=== PATIENT | female | born 1985 | race African-American/Black ===

== ENCOUNTER 2021-06-19 13:56 | Inpatient (IN) | payer OTHER ==
[2021-06-19] MEDS ORDERED: Acetaminophen/oxyCODONE 325-5 MG Tab PO PRN (16:49)
[2021-06-19] MEDS ORDERED: Pantoprazole 40 MG Tab.CR PO SCH (17:00)
[2021-06-19] MEDS ORDERED: amLODIPine 5 MG Tab PO SCH (17:00)
[2021-06-19] MEDS ORDERED: predniSONE 20 MG Tab PO SCH (17:00)
[2021-06-19] MEDS ORDERED: Ondansetron 4 MG/2 ML SDV IVPUSH PRN (17:00)
[2021-06-19] MEDS ORDERED: Furosemide 40 MG/4 ML VIAL IVPUSH ONE (17:00)
[2021-06-19] MEDS ORDERED: Hydroxychloroquine 200 MG Tab PO SCH ×2 (17:00→17:48)
[2021-06-19] MEDS ORDERED: Morphine 2 MG/ML SYRINGE IVPUSH PRN (17:30)
--- NOTE | 2021-06-19 17:45 | PCM.HP.2 ---
H&P History of Present Illness - General Date of Service: 06/19/21 Admit Problem/Dx: Admission Diagnosis/Problem Admission Diagnosis/Problem Chest pain - History of Present Illness Initial Comments - Free Text/Narative: The patient is a 35-year-old half /half -Prydeinig female, on day 1 of service, who has a significant past medical history of SLE, CKD, GERD, hypertension, anxiety, depression, and recent COVID-19 positive diagnosis, who is a direct admit from [facility] in [place], for chest pain. The chest pain started 48 hours ago, is substernal in location, sharp in nature, 7 out of 10 in intensity, and nonradiating. Along with her chest pain, the patient has had a 1 week history of mild shortness of breath, nausea, fatigue, constipation, and bilateral lower extremity edema. She was most recently hospitalized in May inpatient for hyperkalemia and worsening chronic kidney disease. While admitted there was conversation about starting dialysis but that has not yet come to fruition. Her hemoglobin during that inpatient stay was 13.6 and today is 7.6, depicting a worsening status. She has allergies to sulfa. Her family history is significant for diabetes mellitus type 2 and coronary artery disease. Social history is significant for daily marijuana use, but she denies alcohol consumption and cigarette smoking. On CBC, her white blood cells is 13.30, hemoglobin is 7.6, hematocrit is 23.7, platelet count is 190, MCV is increased at 106.8, PT is 9.4, INR is less than 0.93, D-dimer is increased at 1.47. On CMP, sodium is 136, potassium is 5.0, chloride is 103, carbon dioxide is 26, BUN is 38, creatinine is 1.9, estimated GFR is 37, glucose is 145, lipase is 187. Two troponin levels taking and decreasing were increased to 0.083 and 0.065. On ABGs, pH is 7.45, PCO2 is 33.3, PO2 is 70, HCO3 is 23, base excess is -0.2 In the ED at [facility]: Vital signs showed, temperature 98.1, heart rate of 89, blood pressure 150/89, respiratory rate of 20, O2 saturation of 94% on room air an EKG was done which showed Q waves, normal sinus rhythm, anteroseptal infarct with acute over 35 ms The patient was given aspirin 324 mg per oral route once in a normal saline bolus [address] angiogram, small bilateral pleural effusions were seen, no pulmonary embolism, pulmonary arteries were well opacified, no pericardial thickening, there is moderate patchy linear densities at both lung bases, bibasilar pneumonia cannot be excluded, with soft tissue edema in both breasts worse on the right, there was compressive atelectasis, peripancreatic fluid throughout, and intraperitoneal fluid present as well. - Related Data Allergies/Adverse Reactions: Allergies Allergy/AdvReac Type Severity Reaction Status Date / Time Sulfa (Sulfonamide AdvReac Nausea Verified 06/19/21 16:07 Antibiotics) Home Medications: Home Meds predniSONE [Prednisone] 40 mg PO DAILY 12/21/20 [History] oxyCODONE HCl/Acetaminophen [Percocet 5-325 mg Tablet] 1 - 2 each PO Q4H PRN #16 tablet 12/23/20 [Rx] Bumetanide [Bumex] 1 mg PO DAILY 06/18/21 [History] Famotidine 20 mg PO BEDTIME 06/18/21 [History] Hydroxychloroquine [Plaquenil] 400 mg PO DAILY 06/18/21 [History] Labetalol [Normodyne] 300 mg PO TID 06/18/21 [History] amLODIPine [Norvasc] 10 mg PO DAILY 06/18/21 [History] azaTHIOprine [Azathioprine] 150 mg PO DAILY 06/18/21 [History] Calcium/Magnesium/Vitamin D3 [Gianni-Mag Complex 300-150 mg Tab] 1 tab PO DAILY 06/19/21 [History] Cholecalciferol (Vitd3)/Vit K2 [D3 + K2 Dots 1,000 Unit] 1 tab PO DAILY 06/19/21 [History] Ondansetron [Zofran ODT] 1 tab PO Q4HR PRN 06/19/21 [History] Pantoprazole [ProTONIX] 1 tab PO DAILY 06/19/21 [History] Past Medical History Cardiovascular History: Reports: Hypertension 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: Musculoskeletal History: Reports: SLE, Other (See Below) Other Musculoskeletal History: lupus Psychiatric History: Reports: Anxiety, Depression, Emotional Problems, Mood Swings Immunologic History: Reports: SLE - Past Surgical History HEENT Surgical History: Reports: Oral Surgery Respiratory Surgical History: Reports: Thoracentesis Social & Family History - Family History Other Cardiac Family History: heart disease Endocrine/Metabolic: Reports: Diabetes, type II - Tobacco Use Tobacco Use Status *Q: Current Every Day Tobacco User Years of Tobacco use: 20 Packs/Tins Daily: 1 - Caffeine Use Caffeine Use: Reports: Tea - Recreational Drug Use Recreational Drug Use: Yes Recreational Drug Type: Reports: Marijuana/Hashish Recreational Drug Use Frequency: Socially - Living Situation & Occupation Living situation: Reports: Single, with Significant Other (Fianc) 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 Denies: Eye Pain, Sore Throat, Visual Changes Pulmonary: Reports: Shortness of Breath. Denies: Wheezing, Cough Cardiovascular: Reports: Chest Pain, Edema. Denies: Palpitations, Dyspnea on Exertion, Orthopnea Gastrointestinal: Reports: Constipation, Nausea. Denies: Abdominal Pain, Diarrhea, Vomiting Genitourinary: Denies: Dysuria, Frequency, Burning, Pain Musculoskeletal: Reports: Joint Pain. Denies: Shoulder Pain, Back Pain Exam - Exam Exam: See Below - Vital Signs Vital Signs: Last Vital Signs Temp 98.1 F 06/19/21 15:35 Pulse 81 06/19/21 15:35 Resp 18 06/19/21 15:35 BP 142/95 H 06/19/21 15:35 Pulse Ox 99 06/19/21 16:00 Weight: 153 lb - Exam General: Alert, Oriented, Cooperative HEENT: EOMI, Normal Nasal Septum, Posterior Pharynx Clear, Other (Dry mucous membranes) Neck: Trachea Midline. No: Lymphadenopathy Lungs: Clear to Auscultation, Normal Respiratory Effort Cardiovascular: Regular Rate, Regular Rhythm, Normal S1, Normal S2 GI/Abdominal Exam: Normal Bowel Sounds, Distended Extremities: Pedal Edema Neurological: Normal Speech Neuro Extensive - Mental Status: Alert, Oriented x3, Normal Mood/Affect, Normal Cognition Psychiatric: Normal Mood - Patient Data Lab Results Last 24 hrs: Laboratory Results - last 24 hr 06/19/21 Range/Units 17:11 APTT 21.0 (18.6-31.3) SEC Sepsis Event Note - Focused Exam Vital Signs: Vital Signs Temp Pulse Resp BP Pulse Ox Pulse Ox 06/19/21 16:00 99 06/19/21 15:35 98.1 F 81 18 142/95 H 99 - Problem List (1) SLE (systemic lupus erythematosus) SNOMED Code(s): 08425197 ICD Code: M32.9 - SYSTEMIC LUPUS ERYTHEMATOSUS, UNSPECIFIED Status: Acute Current Visit: Yes (2) Constipation SNOMED Code(s): 56455582 ICD Code: K59.00 - CONSTIPATION, UNSPECIFIED Status: Acute Current Visit: Yes (3) HTN (hypertension) SNOMED Code(s): 50008636 ICD Code: I10 - ESSENTIAL (PRIMARY) HYPERTENSION Status: Acute Current Visit: Yes (4) Chest pain SNOMED Code(s): 23259834 ICD Code: R07.9 - CHEST PAIN, UNSPECIFIED Status: Acute Current Visit: Ye s (5) Edema SNOMED Code(s): 039447929, 142469211 ICD Code: R60.9 - EDEMA, UNSPECIFIED Status: Acute Current Visit: Yes (6) Shortness of breath SNOMED Code(s): 777473924 ICD Code: R06.02 - SHORTNESS OF BREATH Status: Acute Current Visit: Yes (7) Pleural effusion SNOMED Code(s): 38777924 ICD Code: J90 - PLEURAL EFFUSION, NOT ELSEWHERE CLASSIFIED Status: Acute Current Visit: Yes (8) Anemia SNOMED Code(s): 688041977 ICD Code: D64.9 - ANEMIA, UNSPECIFIED Status: Acute Current Visit: No Qualifiers: Anemia type: unspecified type Qualified Code(s): D64.9 - Anemia, unspecified (9) COVID-19 SNOMED Code(s): 940597706 ICD Code: U07.1 - COVID-19 Status: Acute Current Visit: No (10) Elevated troponin SNOMED Code(s): 086937151, 279853189, 641071236 ICD Code: R77.8 - OTHER SPECIFIED ABNORMALITIES OF PLASMA PROTEINS Status: Acute Current Visit: No (11) ADAMA (acute kidney injury) SNOMED Code(s): 12214312, 67662666 ICD Code: N17.9 - ACUTE KIDNEY FAILURE, UNSPECIFIED Status: Acute Current Visit: Yes Problem List Initiated/Reviewed/Updated: Yes Orders Last 24hrs: Active Orders 24 hr Category Date Time Status Admission Status [Patient Status] [ADT] Routine ADT 06/19/21 17:33 Ordered Oxygen Therapy [RC] PRN Care 06/19/21 15:35 Active Telemetry Monitoring [Cardiac Monitoring] [RC] . Care 06/19/21 17:29 Ordered DIRECTED Up ad Inga [RC] ASDIRECTED Care 06/19/21 15:35 Active VTE/DVT Education [RC] PER UNIT ROUTINE Care 06/19/21 15:35 Active Vital Signs [RC] Q4H Care 06/19/21 15:35 Active Regular Diet [DIET] Diet 06/19/21 Dinner Active CBC WITH AUTO DIFF [HEME] AM Lab 06/20/21 05:11 Ordered CBC WITH AUTO DIFF [HEME] AM Lab 06/21/21 05:11 Ordered CBC WITH AUTO DIFF [HEME] AM Lab 06/22/21 05:11 Ordered CBC WITH AUTO DIFF [HEME] AM Lab 06/23/21 05:11 Ordered CMP [COMPREHENSIVE METABOLIC PN,CMP] [CHEM] AM Lab 06/20/21 05:11 Ordered CMP [COMPREHENSIVE METABOLIC PN,CMP] [CHEM] AM Lab 06/21/21 05:11 Ordered CMP [COMPREHENSIVE METABOLIC PN,CMP] [CHEM] AM Lab 06/22/21 05:11 Ordered CMP [COMPREHENSIVE METABOLIC PN,CMP] [CHEM] AM Lab 06/23/21 05:11 Ordered FOLIC ACID [CHEM] Routine Lab 06/19/21 17:11 Received PTT,PARTIAL THROMBOPLSTIN TIME [COAG] Q6H Lab 06/19/21 23:00 Ordered PTT,PARTIAL THROMBOPLSTIN TIME [COAG] Q6H Lab 06/20/21 05:00 Ordered PTT,PARTIAL THROMBOPLSTIN TIME [COAG] Q6H Lab 06/20/21 11:00 Ordered PTT,PARTIAL THROMBOPLSTIN TIME [COAG] Q6H Lab 06/20/21 17:00 Ordered PTT,PARTIAL THROMBOPLSTIN TIME [COAG] Q6H Lab 06/20/21 23:00 Ordered PTT,PARTIAL THROMBOPLSTIN TIME [COAG] Q6H Lab 06/21/21 05:00 Ordered TROPONIN I [CHEM] Routine Lab 06/19/21 17:11 Received VITAMIN B12 [CHEM] Routine Lab 06/19/21 17:11 Received Heparin Sodium Med 06/19/21 17:00 Ordered 5,000 units SUBCUT Q8H Hydroxychloroquine [Plaquenil] Med 06/19/21 17:00 Ordered 400 mg PO DAILY Morphine Med 06/19/21 17:31 Ordered 1 mg IVPUSH Q4H PRN Ondansetron [Zofran] Med 06/19/21 16:53 Ordered 4 mg IVPUSH Q4H PRN Pantoprazole [ProTONIX] Med 06/19/21 17:00 Ordered 40 mg PO DAILY amLODIPine [Norvasc] Med 06/19/21 17:00 Ordered 10 mg PO DAILY azaTHIOprine [Imuran] Med 06/19/21 17:00 Ordered 150 mg PO DAILY predniSONE Med 06/19/21 17:00 Active 40 mg PO DAILY Medication Orders Amlodipine Besylate (Amlodipine 5 Mg Tab) 10 mg PO DAILY DEJON Azathioprine (Azathioprine 50 Mg Tab) 150 mg PO DAILY [facility] Heparin Sodium (Porcine) (Heparin Sodium 5,000 Units/Ml Vial) 5,000 units SUBCUT Q8H DEJON Hydroxychloroquine Sulfate (Hydroxychloroquine 200 Mg Tab) 400 mg PO DAILY [facility] Morphine Sulfate (Morphine 2 Mg/Ml Syringe) 1 mg IVPUSH Q4H PRN PRN Reason: Chest Pain Ondansetron HCl (Ondansetron 4 Mg/2 Ml Sdv) 4 mg IVPUSH Q4H PRN PRN Reason: Nausea Pantoprazole Sodium (Pantoprazole 40 Mg Tab.Cr) 40 mg PO DAILY DEJON Prednisone (Prednisone 20 Mg Tab) 40 mg PO DAILY [facility] Assessment/Plan Comment:: Admit the patient to the medical floor for observation, vitals per unit routine, activity up ad inga., pantoprazole 40 mg p.o. once a day for GI prophylaxis, heparin 5000 three times a day for DVT prophylaxis, regular vegetarian diet 1. Chest pain -The patient had 2 troponin levels drawn while she was in [facility], both levels were elevated at 0.083 and 0.065. We have ordered another troponin level to see the trend. -The patient's chest pain is currently 1/10 in intensity after being treated with aspirin 324 mg once in [facility], we have morphine 1 mg per IV route on board if she experiences any more chest pain -The patient has been placed on telemetry to monitor her cardiac electrical function 2. SLE -We will continue the patient on her home dosage of his azathioprine 150 mg per oral route once a day -We will continue the patient on hydroxychloroquine 400 mg per oral route once a day -We will continue the patient on prednisone 40 mg per oral route once a day 3. Lower extremity edema/Pleural effusion -We will give the patient's Lasix 40 mg per IV route once and see what effect that has on the patient's fluid buildup 4. Shortness of breath -For the patient's intermittent shortness of breath, we have duo nebs on board 5. Constipation -MiraLAX 17 g at bedtime per oral route in a powder form is on board 6. Nausea -Zofran 4 mg per intravenous route every 4 hours as needed is on board 7. Hypertension -Continue the patient's amlodipine 10 mg per oral route once a day 8. Anemia, increased MCV -We have ordered a folate and B12 level to decipher macrocytosis cause, also ordered Daily CBC 9. ADAMA -Patient's elevated creatinine is most likely due to history of SLE, will monitor with daily CMP 10. COVID-19 -Patient is currently saturating over 90% on room air, does not require treatment at this time
[2021-06-19] MEDS ORDERED: Albuterol/Ipratropium 3.0-0.5 MG/3 ML Neb Soln NEB PRN (18:00)
[2021-06-19] MEDS: predniSONE 20 MG Tab PO SCH (18:25)
[2021-06-19] MEDS: Heparin Sodium 5,000 Units/ML Vial SUBCUT SCH (18:25)
[2021-06-19] MEDS: Pantoprazole 40 MG Tab.CR PO SCH (18:25)
[2021-06-19] MEDS ORDERED: Polyethylene Glycol 3350 Powder 17 GM Packet PO PRN (21:00)
[2021-06-20] MEDS: Heparin Sodium 5,000 Units/ML Vial SUBCUT SCH ×3 (01:20→17:02)
[2021-06-20 06:42] LABS: CARBON DIOXIDE,CO2 26.1 mmol/L (21.0-32.0); POTASSIUM,K 5.1 mmol/L (3.5-5.1)
[2021-06-20] MEDS: predniSONE 20 MG Tab PO SCH (08:32)
[2021-06-20] MEDS: Pantoprazole 40 MG Tab.CR PO SCH (08:32)
--- NOTE | 2021-06-20 10:37 | PCM.PN ---
- General Info Date of Service: 06/20/21 Subjective Update: Patient states feeling better after loss of free fluid, as patient was retaining fluid prior to admission. Patient denies chest pain, shortness of breath, fever , nausea, vomiting, abdominal pain. States constipation. - Review of Systems General: Reports: Fatigue. Denies: Fever, Chills Pulmonary: Denies: Shortness of Breath, Cough Cardiovascular: Reports: Chest Pain. Denies: Dyspnea on Exertion, Edema Gastrointestinal: Denies: Abdominal Pain, Diarrhea, Nausea, Vomiting Neurological: Denies: Confusion, Dizziness, Headache - Patient Data Vitals - Most Recent: Last Vital Signs Temp 98.0 F 06/20/21 08:00 Pulse 93 06/20/21 08:00 Resp 16 06/20/21 08:00 BP 154/115 H 06/20/21 08:00 Pulse Ox 100 06/20/21 08:00 Weight - Most Recent: 153 lb I&O - Last 24 Hours: Intake & Output 06/19/21 06/20/21 06/20/21 22:59 06:59 14:59 Intake Total 200 Output Total 1500 Balance -1300 Lab Results Last 24 Hours: Laboratory Results - last 24 hr 06/19/21 06/19/21 06/19/21 Range/Units 17:11 17:11 17:11 WBC (4.0-11.0) K/uL RBC (4.30-5.90) M/uL Hgb (12.0-16.0) g/dL Hct (36.0-46.0) % MCV (80.0-98.0) fL MCH (27.0-32.0) pg MCHC (31.0-37.0) g/dL RDW Std Deviation (28.0-62.0) fl RDW Coeff of Go (11.0-15.0) % Plt Count (150-400) K/uL MPV (7.40-12.00) fL Neut % (Auto) (48.0-80.0) % Lymph % (Auto) (16.0-40.0) % [place] % (Auto) (0.0-15.0) % Eos % (Auto) (0.0-7.0) % Baso % (Auto) (0.0-1.5) % Neut # (Auto) (1.4-5.7) K/uL Lymph # (Auto) (0.6-2.4) K/uL [place] # (Auto) (0.0-0.8) K/uL Eos # (Auto) (0.0-0.7) K/uL Baso # (Auto) (0.0-0.1) K/uL APTT 21.0 (18.6-31.3) SEC Sodium (136-145) mmol/L Potassium (3.5-5.1) mmol/L Chloride (98-107) mmol/L Carbon Dioxide (21.0-32.0) mmol/L BUN (7.0-18.0) mg/dL Creatinine (0.6-1.0) mg/dL Est Cr Clr Drug Dosing mL/min Estimated GFR (MDRD) ml/min Glucose (74-106) mg/dL Calcium (8.5-10.1) mg/dL Total Bilirubin (0.2-1.0) mg/dL AST (15-37) IU/L ALT (14-63) IU/L Alkaline Phosphatase (46-116) U/L Troponin I 0.068 H* (0.000-0.056) ng/mL B-Natriuretic Peptide (<100) PG/ML Total Protein (6.4-8.2) g/dL Albumin (3.4-5.0) g/dL Globulin (2.6-4.0) g/dL Albumin/Globulin Ratio (0.9-1.6) Vitamin B12 517 (193-986) pg/mL Folate 10.90 (8.60-58.90) ng/mL 06/19/21 06/20/21 06/20/21 Range/Units 21:15 01:24 05:47 WBC (4.0-11.0) K/uL RBC (4.30-5.90) M/uL Hgb (12.0-16.0) g/dL Hct (36.0-46.0) % MCV (80.0-98.0) fL MCH (27.0-32.0) pg MCHC (31.0-37.0) g/dL RDW Std Deviation (28.0-62.0) fl RDW Coeff of Go (11.0-15.0) % Plt Count (150-400) K/uL MPV (7.40-12.00) fL Neut % (Auto) (48.0-80.0) % Lymph % (Auto) (16.0-40.0) % [place] % (Auto) (0.0-15.0) % Eos % (Auto) (0.0-7.0) % Baso % (Auto) (0.0-1.5) % Neut # (Auto) (1.4-5.7) K/uL Lymph # (Auto) (0.6-2.4) K/uL [place] # (Auto) (0.0-0.8) K/uL Eos # (Auto) (0.0-0.7) K/uL Baso # (Auto) (0.0-0.1) K/uL APTT 21.8 (18.6-31.3) SEC Sodium (136-145) mmol/L Potassium (3.5-5.1) mmol/L Chloride (98-107) mmol/L Carbon Dioxide (21.0-32.0) mmol/L BUN (7.0-18.0) mg/dL Creatinine (0.6-1.0) mg/dL Est Cr Clr Drug Dosing mL/min Estimated GFR (MDRD) ml/min Glucose (74-106) mg/dL Calcium (8.5-10.1) mg/dL Total Bilirubin (0.2-1.0) mg/dL AST (15-37) IU/L ALT (14-63) IU/L Alkaline Phosphatase (46-116) U/L Troponin I 0.053 0.050 (0.000-0.056) ng/mL B-Natriuretic Peptide (<100) PG/ML Total Protein (6.4-8.2) g/dL Albumin (3.4-5.0) g/dL Globulin (2.6-4.0) g/dL Albumin/Globulin Ratio (0.9-1.6) Vitamin B12 (193-986) pg/mL Folate (8.60-58.90) ng/mL 06/20/21 06/20/21 06/20/21 Range/Units 05:47 05:47 05:47 WBC 20.91 H (4.0-11.0) K/uL RBC 2.43 L (4.30-5.90) M/uL Hgb 8.5 L (12.0-16.0) g/dL Hct 25.9 L (36.0-46.0) % MCV 106.6 H (80.0-98.0) fL MCH 35.0 H (27.0-32.0) pg MCHC 32.8 (31.0-37.0) g/dL RDW Std Deviation 53.3 (28.0-62.0) fl RDW Coeff of Go 14 (11.0-15.0) % Plt Count 241 (150-400) K/uL MPV 11.80 (7.40-12.00) fL Neut % (Auto) 94.8 H (48.0-80.0) % Lymph % (Auto) 2.2 L (16.0-40.0) % [place] % (Auto) 3.0 (0.0-15.0) % Eos % (Auto) 0.0 (0.0-7.0) % Baso % (Auto) 0.0 (0.0-1.5) % Neut # (Auto) 19.8 H (1.4-5.7) K/uL Lymph # (Auto) 0.5 L (0.6-2.4) K/uL [place] # (Auto) 0.6 (0.0-0.8) K/uL Eos # (Auto) 0.0 (0.0-0.7) K/uL Baso # (Auto) 0.0 (0.0-0.1) K/uL APTT (18.6-31.3) SEC Sodium 141 (136-145) mmol/L Potassium 5.1 (3.5-5.1) mmol/L Chloride 107 (98-107) mmol/L Carbon Dioxide 26.1 (21.0-32.0) mmol/L BUN 39 H (7.0-18.0) mg/dL Creatinine 1.7 H (0.6-1.0) mg/dL Est Cr Clr Drug Dosing 43.65 mL/min Estimated GFR (MDRD) 41.7 ml/min Glucose 129 H (74-106) mg/dL Calcium 7.4 L (8.5-10.1) mg/dL Total Bilirubin 0.2 (0.2-1.0) mg/dL AST 13 L (15-37) IU/L ALT 20 (14-63) IU/L Alkaline Phosphatase 68 (46-116) U/L Troponin I (0.000-0.056) ng/mL B-Natriuretic Peptide 22 (<100) PG/ML Total Protein 4.1 L (6.4-8.2) g/dL Albumin 1.3 L (3.4-5.0) g/dL Globulin 2.8 (2.6-4.0) g/dL Albumin/Globulin Ratio 0.5 L (0.9-1.6) Vitamin B12 (193-986) pg/mL Folate (8.60-58.90) ng/mL Med Orders - Current: Current Medications Albuterol/Ipratropium (Albuterol/Ipratropium 3.0-0.5 Mg/3 Ml Neb Soln) 3 ml NEB Q8HRRT PRN PRN Reason: Shortness of Breath Heparin Sodium (Porcine) (Heparin Sodium 5,000 Units/Ml Vial) 5,000 units SUBCUT Q8H [facility] Last Admin: 06/20/21 08:29 Dose: 5,000 units Documented by: Morphine Sulfate (Morphine 2 Mg/Ml Syringe) 1 mg IVPUSH Q4H PRN PRN Reason: Chest Pain Ondansetron HCl (Ondansetron 4 Mg/2 Ml Sdv) 4 mg IVPUSH Q4H PRN PRN Reason: Nausea Amlodipine 10 Mg Tab 1 each PO DAILY [facility] Last Admin: 06/20/21 08:30 Dose: 1 each Documented by: Pantoprazole 40 Mg (Tab.Cr) 1 each PO DAILY [facility] Last Admin: 06/20/21 08:32 Dose: 1 each Documented by: Azathioprine 50 Mg (Tab) 2.5 each PO DAILY [facility] Last Admin: 06/20/21 08:31 Dose: 2.5 each Documented by: Prednisone 20 Mg Tab 2 each PO DAILY [facility] Last Admin: 06/20/21 08:32 Dose: 2 each Documented by: Hydroxychloroquine (200 Mg Tab) 1 each PO BID [facility] Polyethylene Glycol (Polyethylene Glycol 3350 Powder 17 Gm Packet) 17 gm PO BEDTIME PRN PRN Reason: Constipation Discontinued Medications Amlodipine Besylate (Amlodipine 5 Mg Tab) 10 mg PO DAILY [facility] Last Admin: 06/19/21 18:45 Dose: Not Given Documented by: Azathioprine (Azathioprine 50 Mg Tab) 150 mg PO DAILY [facility] Last Admin: 06/19/21 18:44 Dose: Not Given Documented by: Furosemide (Furosemide 40 Mg/4 Ml Vial) 40 mg IVPUSH NOW ONE Stop: 06/19/21 17:01 Last Admin: 06/19/21 18:26 Dose: 40 mg Documented by: Hydroxychloroquine Sulfate (Hydroxychloroquine 200 Mg Tab) 400 mg PO DAILY [facility] Last Admin: 06/19/21 18:45 Dose: Not Given Documented by: Oxycodone/Acetaminophen (Acetaminophen/Oxycodone 325-5 Mg Tab) tab PO Q4H PRN PRN Reason: Pain relief Pantoprazole Sodium (Pantoprazole 40 Mg Tab.Cr) 40 mg PO DAILY [facility] Last Admin: 06/19/21 18:46 Dose: Not Given Documented by: Hydroxychloroquine (200 Mg Tab) 2 each PO DAILY [facility] Last Admin: 06/20/21 08:31 Dose: 2 each Documented by: Prednisone (Prednisone 20 Mg Tab) 40 mg PO DAILY [facility] Last Admin: 06/19/21 18:46 Dose: Not Given Documented by: - Exam General: Alert, Oriented Lungs: Clear to Auscultation, Normal Respiratory Effort, Wheezing Cardiovascular: Regular Rhythm GI/Abdominal Exam: Soft, Non-Tender, Distended Psy/Mental Status: Alert - Patient Data Lab Results Last 24 hrs: Laboratory Results - last 24 hr 06/19/21 06/19/21 06/19/21 Range/Units 17:11 17:11 17:11 WBC (4.0-11.0) K/uL RBC (4.30-5.90) M/uL Hgb (12.0-16.0) g/dL Hct (36.0-46.0) % MCV (80.0-98.0) fL MCH (27.0-32.0) pg MCHC (31.0-37.0) g/dL RDW Std Deviation (28.0-62.0) fl RDW Coeff of Go (11.0-15.0) % Plt Count (150-400) K/uL MPV (7.40-12.00) fL Neut % (Auto) (48.0-80.0) % Lymph % (Auto) (16.0-40.0) % [place] % (Auto) (0.0-15.0) % Eos % (Auto) (0.0-7.0) % Baso % (Auto) (0.0-1.5) % Neut # (Auto) (1.4-5.7) K/uL Lymph # (Auto) (0.6-2.4) K/uL [place] # (Auto) (0.0-0.8) K/uL Eos # (Auto) (0.0-0.7) K/uL Baso # (Auto) (0.0-0.1) K/uL APTT 21.0 (18.6-31.3) SEC Sodium (136-145) mmol/L Potassium (3.5-5.1) mmol/L Chloride (98-107) mmol/L Carbon Dioxide (21.0-32.0) mmol/L BUN (7.0-18.0) mg/dL Creatinine (0.6-1.0) mg/dL Est Cr Clr Drug Dosing mL/min Estimated GFR (MDRD) ml/min Glucose (74-106) mg/dL Calcium (8.5-10.1) mg/dL Total Bilirubin (0.2-1.0) mg/dL AST (15-37) IU/L ALT (14-63) IU/L Alkaline Phosphatase (46-116) U/L Troponin I 0.068 H* (0.000-0.056) ng/mL B-Natriuretic Peptide (<100) PG/ML Total Protein (6.4-8.2) g/dL Albumin (3.4-5.0) g/dL Globulin (2.6-4.0) g/dL Albumin/Globulin Ratio (0.9-1.6) Vitamin B12 517 (193-986) pg/mL Folate 10.90 (8.60-58.90) ng/mL 06/19/21 06/20/21 06/20/21 Range/Units 21:15 01:24 05:47 WBC (4.0-11.0) K/uL RBC (4.30-5.90) M/uL Hgb (12.0-16.0) g/dL Hct (36.0-46.0) % MCV (80.0-98.0) fL MCH (27.0-32.0) pg MCHC (31.0-37.0) g/dL RDW Std Deviation (28.0-62.0) fl RDW Coeff of Go (11.0-15.0) % Plt Count (150-400) K/uL MPV (7.40-12.00) fL Neut % (Auto) (48.0-80.0) % Lymph % (Auto) (16.0-40.0) % [place] % (Auto) (0.0-15.0) % Eos % (Auto) (0.0-7.0) % Baso % (Auto) (0.0-1.5) % Neut # (Auto) (1.4-5.7) K/uL Lymph # (Auto) (0.6-2.4) K/uL [place] # (Auto) (0.0-0.8) K/uL Eos # (Auto) (0.0-0.7) K/uL Baso # (Auto) (0.0-0.1) K/uL APTT 21.8 (18.6-31.3) SEC Sodium (136-145) mmol/L Potassium (3.5-5.1) mmol/L Chloride (98-107) mmol/L Carbon Dioxide (21.0-32.0) mmol/L BUN (7.0-18.0) mg/dL Creatinine (0.6-1.0) mg/dL Est Cr Clr Drug Dosing mL/min Estimated GFR (MDRD) ml/min Glucose (74-106) mg/dL Calcium (8.5-10.1) mg/dL Total Bilirubin (0.2-1.0) mg/dL AST (15-37) IU/L ALT (14-63) IU/L Alkaline Phosphatase (46-116) U/L Troponin I 0.053 0.050 (0.000-0.056) ng/mL B-Natriuretic Peptide (<100) PG/ML Total Protein (6.4-8.2) g/dL Albumin (3.4-5.0) g/dL Globulin (2.6-4.0) g/dL Albumin/Globulin Ratio (0.9-1.6) Vitamin B12 (193-986) pg/mL Folate (8.60-58.90) ng/mL 06/20/21 06/20/21 06/20/21 Range/Units 05:47 05:47 05:47 WBC 20.91 H (4.0-11.0) K/uL RBC 2.43 L (4.30-5.90) M/uL Hgb 8.5 L (12.0-16.0) g/dL Hct 25.9 L (36.0-46.0) % MCV 106.6 H (80.0-98.0) fL MCH 35.0 H (27.0-32.0) pg MCHC 32.8 (31.0-37.0) g/dL RDW Std Deviation 53.3 (28.0-62.0) fl RDW Coeff of Go 14 (11.0-15.0) % Plt Count 241 (150-400) K/uL MPV 11.80 (7.40-12.00) fL Neut % (Auto) 94.8 H (48.0-80.0) % Lymph % (Auto) 2.2 L (16.0-40.0) % [place] % (Auto) 3.0 (0.0-15.0) % Eos % (Auto) 0.0 (0.0-7.0) % Baso % (Auto) 0.0 (0.0-1.5) % Neut # (Auto) 19.8 H (1.4-5.7) K/uL Lymph # (Auto) 0.5 L (0.6-2.4) K/uL [place] # (Auto) 0.6 (0.0-0.8) K/uL Eos # (Auto) 0.0 (0.0-0.7) K/uL Baso # (Auto) 0.0 (0.0-0.1) K/uL APTT (18.6-31.3) SEC Sodium 141 (136-145) mmol/L Potassium 5.1 (3.5-5.1) mmol/L Chloride 107 (98-107) mmol/L Carbon Dioxide 26.1 (21.0-32.0) mmol/L BUN 39 H (7.0-18.0) mg/dL Creatinine 1.7 H (0.6-1.0) mg/dL Est Cr Clr Drug Dosing 43.65 mL/min Estimated GFR (MDRD) 41.7 ml/min Glucose 129 H (74-106) mg/dL Calcium 7.4 L (8.5-10.1) mg/dL Total Bilirubin 0.2 (0.2-1.0) mg/dL AST 13 L (15-37) IU/L ALT 20 (14-63) IU/L Alkaline Phosphatase 68 (46-116) U/L Troponin I (0.000-0.056) ng/mL B-Natriuretic Peptide 22 (<100) PG/ML Total Protein 4.1 L (6.4-8.2) g/dL Albumin 1.3 L (3.4-5.0) g/dL Globulin 2.8 (2.6-4.0) g/dL Albumin/Globulin Ratio 0.5 L (0.9-1.6) Vitamin B12 (193-986) pg/mL Folate (8.60-58.90) ng/mL Result Diagrams: 06/20/21 05:47 06/20/21 05:47 Sepsis Event Note - Evaluation Sepsis Screening Result: No Definite Risk - Focused Exam Vital Signs: Vital Signs Temp Pulse Resp BP BP Pulse Ox 06/20/21 08:00 98.0 F 93 16 154/115 H 100 06/20/21 04:00 98.9 F 97 17 138/104 H 100 06/20/21 00:00 98.1 F 98 17 142/98 H 100 - Problem List & Annotations (1) ADAMA (acute kidney injury) SNOMED Code(s): 50844233, 88747325 Code(s): N17.9 - ACUTE KIDNEY FAILURE, UNSPECIFIED Status: Acute Current Visit: Yes (2) Chest pain SNOMED Code(s): 32276700 Code(s): R07.9 - CHEST PAIN, UNSPECIFIED Status: Acute Current Visit: Yes (3) Constipation SNOMED Code(s): 44504662 Code(s): K59.00 - CONSTIPATION, UNSPECIFIED Status: Acute Current Visit: Yes (4) HTN (hypertension) SNOMED Code(s): 07403677 Code(s): I10 - ESSENTIAL (PRIMARY) HYPERTENSION Status: Acute Current Visit: Yes (5) SLE (systemic lupus erythematosus) SNOMED Code(s): 35121600 Code(s): M32.9 - SYSTEMIC LUPUS ERYTHEMATOSUS, UNSPECIFIED Status: Acute Current Visit: Yes (6) Lupus SNOMED Code(s): 229297626 Code(s): M32.9 - SYSTEMIC LUPUS ERYTHEMATOSUS, UNSPECIFIED Status: Acute Current Visit: No (7) Renal insufficiency SNOMED Code(s): 207621759, 247346997 Code(s): N28.9 - DISORDER OF KIDNEY AND URETER, UNSPECIFIED Status: Acute Current Visit: No - Problem List Review Problem List Initiated/Reviewed/Updated: Yes - My Orders Last 24 Hours: My Active Orders 06/20/21 10:19 Intake and Output Strict [RC] ASDIRECTED - Plan Plan:: Chest pain- Troponins currently negative, telemetry SLE- Spoke with Dr. Chilel, nephrology at [facility]. Per recommendations, hold azathioprine for 2 weeks, continue prednisone 40 mg daily, continue hydroxychloroquine, will discuss Cytoxan at next appointment. Patient to be followed up in [address] Chilel. Clinic contact number [phone], address [address] [facility], 2nd floor. Edema1 mg Bumex twice daily, strict I's and O's, adjust medication as needed ADAMA-likely secondary to SLE, creatinine improved from yesterday, 1.7. COVID-19 Patient has positive COVID-19 test but is not hypoxic. Patient at 99% O2 saturation on RA. Will defer remdesivir, dexamethasone therapy. Spoke with , crossing tender at [facility]. Rheumatology recommends that patient may receive monoclonal antibody therapy. Recommended ordering labs to include C3, C4, dsDNA, ESR, CRP to help identify severity of SLE flare versus viral infection. Patient states she will discuss antibody treatment with family members prior to proceeding. MiraLAX, zofran,
[2021-06-20] MEDS ORDERED: Bumetanide 1 MG Tab PO SCH (11:00)
[2021-06-20] MEDS ORDERED: Bumetanide 1 MG/4 ML MDV IVPUSH SCH (11:45)
[2021-06-20] MEDS: Bumetanide 1 MG/4 ML MDV IVPUSH SCH (17:02)
[2021-06-21] MEDS: Heparin Sodium 5,000 Units/ML Vial SUBCUT SCH ×3 (00:10→17:33)
[2021-06-21] MEDS: Bumetanide 1 MG/4 ML MDV IVPUSH SCH ×2 (05:58→17:33)
[2021-06-21 07:21] LABS: CARBON DIOXIDE,CO2 25.8 mmol/L (21.0-32.0); POTASSIUM,K 5.2 mmol/L (3.5-5.1)
[2021-06-21] MEDS: predniSONE 20 MG Tab PO SCH (08:32)
[2021-06-21] MEDS: Hydroxychloroquine 200 MG Tab PO SCH ×2 (08:32→21:44)
[2021-06-21] MEDS: Pantoprazole 40 MG Tab.CR PO SCH (08:32)
[2021-06-21] MEDS ORDERED: Famotidine 20 MG/2 ML SDV IVPUSH PRN (10:27)
[2021-06-21] MEDS ORDERED: diphenhydrAMINE 50 MG/ML SDV IVPUSH PRN (10:27)
[2021-06-21] MEDS ORDERED: methylPREDNISolone Sodium Succinate 125 MG/2 ML SDV IVPUSH PRN (10:27)
[2021-06-21] MEDS ORDERED: EPINEPHrine 1 MG/1 ML Amp IM PRN (10:27)
[2021-06-21] MEDS ORDERED: Sodium Chloride 0.9% 10 ML Syringe FLUSH SCH (10:30)
--- NOTE | 2021-06-21 19:42 | PCM.PN ---
- General Info Date of Service: 06/21/21 Subjective Update: Patient states that she feels better after receiving IV Bumex, states less abdominal distention, less lower extremity edema. Patient states mild fatigue which she attributes to COVID-19 infection. - Review of Systems General: Reports: Fatigue. Denies: Fever, Chills Pulmonary: Denies: Shortness of Breath, Cough Cardiovascular: Reports: Edema. Denies: Chest Pain, Dyspnea on Exertion Gastrointestinal: Denies: Abdominal Pain, Decreased Appetite, Diarrhea, Nausea Neurological: Denies: Confusion, Dizziness, Headache - Patient Data Vitals - Most Recent: Last Vital Signs Temp 96.9 F 06/21/21 17:00 Pulse 99 06/21/21 17:00 Resp 18 06/21/21 17:00 BP 156/100 H 06/21/21 17:00 Pulse Ox 97 06/21/21 17:00 Weight - Most Recent: 149 lb 8.28 oz I&O - Last 24 Hours: Intake & Output 06/21/21 06/21/21 06/21/21 06:59 14:59 22:59 Intake Total 400 800 Output Total 650 Balance -250 800 Lab Results Last 24 Hours: Laboratory Results - last 24 hr 06/21/21 06/21/21 Range/Units 06:00 07:45 WBC 14.48 H (4.0-11.0) K/uL RBC 2.43 L (4.30-5.90) M/uL Hgb 8.4 L (12.0-16.0) g/dL Hct 24.6 L (36.0-46.0) % MCV 101.2 H (80.0-98.0) fL MCH 34.6 H (27.0-32.0) pg MCHC 34.1 (31.0-37.0) g/dL RDW Std Deviation 55.8 (28.0-62.0) fl RDW Coeff of Go 15 (11.0-15.0) % Plt Count 233 (150-400) K/uL MPV 11.60 (7.40-12.00) fL Neut % (Auto) 89.3 H (48.0-80.0) % Lymph % (Auto) 7.7 L (16.0-40.0) % [place] % (Auto) 2.6 (0.0-15.0) % Eos % (Auto) 0.3 (0.0-7.0) % Baso % (Auto) 0.1 (0.0-1.5) % Neut # (Auto) 12.9 H (1.4-5.7) K/uL Lymph # (Auto) 1.1 (0.6-2.4) K/uL [place] # (Auto) 0.4 (0.0-0.8) K/uL Eos # (Auto) 0.0 (0.0-0.7) K/uL Baso # (Auto) 0.0 (0.0-0.1) K/uL Nucleated RBC % 0.4 /100WBC Nucleated RBCs # 0 K/uL Sodium 141 (136-145) mmol/L Potassium 5.2 H (3.5-5.1) mmol/L Chloride 107 (98-107) mmol/L Carbon Dioxide 25.8 (21.0-32.0) mmol/L BUN 36 H (7.0-18.0) mg/dL Creatinine 1.6 H (0.6-1.0) mg/dL Est Cr Clr Drug Dosing 46.38 mL/min Estimated GFR (MDRD) 44.7 ml/min Glucose 81 (74-106) mg/dL Calcium 7.0 L (8.5-10.1) mg/dL Total Bilirubin 0.4 (0.2-1.0) mg/dL AST 26 (15-37) IU/L ALT 33 (14-63) IU/L Alkaline Phosphatase 60 (46-116) U/L Total Protein 3.9 L (6.4-8.2) g/dL Albumin 1.1 L (3.4-5.0) g/dL Globulin 2.8 (2.6-4.0) g/dL Albumin/Globulin Ratio 0.4 L (0.9-1.6) Med Orders - Current: Current Medications Albuterol/Ipratropium (Albuterol/Ipratropium 3.0-0.5 Mg/3 Ml Neb Soln) 3 ml NEB Q8HRRT PRN PRN Reason: Shortness of Breath Last Admin: 06/21/21 12:50 Dose: 3 ml Documented by: Bumetanide (Bumetanide 1 Mg/4 Ml Mdv) 1 mg IVPUSH Q12H [facility] Last Admin: 06/21/21 17:33 Dose: 1 mg Documented by: Diphenhydramine HCl (Diphenhydramine 50 Mg/Ml Sdv) 50 mg IVPUSH ASDIRECTED PRN PRN Reason: hypersensitivity reaction Epinephrine HCl (Epinephrine 1 Mg/1 Ml Amp) 0.3 mg IM ASDIRECTED PRN PRN Reason: hypersensitivity reaction Famotidine (Famotidine 20 Mg/2 Ml Sdv) 20 mg IVPUSH ASDIRECTED PRN PRN Reason: hypersensitivity reaction Heparin Sodium (Porcine) (Heparin Sodium 5,000 Units/Ml Vial) 5,000 units SUBCUT Q8H [facility] Last Admin: 06/21/21 17:33 Dose: 5,000 units Documented by: Methylprednisolone Sodium Succinate (Methylprednisolone Sodium Succinate 125 Mg/2 Ml Sdv) 125 mg IVPUSH ASDIRECTED PRN PRN Reason: hypersensitivity reaction Morphine Sulfate (Morphine 2 Mg/Ml Syringe) 1 mg IVPUSH Q4H PRN PRN Reason: Chest Pain Ondansetron HCl (Ondansetron 4 Mg/2 Ml Sdv) 4 mg IVPUSH Q4H PRN PRN Reason: Nausea Amlodipine 10 Mg Tab 1 each PO DAILY [facility] Last Admin: 06/21/21 08:31 Dose: 1 each Documented by: Pantoprazole 40 Mg (Tab.Cr) 1 each PO DAILY [facility] Last Admin: 06/21/21 08:32 Dose: 1 each Documented by: Prednisone 20 Mg Tab 2 each PO DAILY [facility] Last Admin: 06/21/21 08:32 Dose: 2 each Documented by: Hydroxychloroquine (200 Mg Tab) 1 each PO BID [facility] Last Admin: 06/21/21 08:32 Dose: 1 each Documented by: Polyethylene Glycol (Polyethylene Glycol 3350 Powder 17 Gm Packet) 17 gm PO BEDTIME PRN PRN Reason: Constipation Sodium Chloride (Sodium Chloride 0.9% 10 Ml Syringe) 30 ml FLUSH ASDIRECTED [facility] Discontinued Medications Amlodipine Besylate (Amlodipine 5 Mg Tab) 10 mg PO DAILY [facility] Last Admin: 06/19/21 18:45 Dose: Not Given Documented by: Azathioprine (Azathioprine 50 Mg Tab) 150 mg PO DAILY [facility] Last Admin: 06/19/21 18:44 Dose: Not Given Documented by: Bumetanide (Bumetanide 1 Mg Tab) 2 mg PO DAILY [facility] Last Admin: 06/20/21 11:21 Dose: 2 mg Documented by: Bumetanide (Bumetanide 1 Mg/4 Ml Mdv) 1 mg IVPUSH BID [facility] Furosemide (Furosemide 40 Mg/4 Ml Vial) 40 mg IVPUSH NOW ONE Stop: 06/19/21 17:01 Last Admin: 06/19/21 18:26 Dose: 40 mg Documented by: Hydroxychloroquine Sulfate (Hydroxychloroquine 200 Mg Tab) 400 mg PO DAILY [facility] Last Admin: 06/19/21 18:45 Dose: Not Given Documented by: Non-Formulary Medication 600 mg/ Non-Formulary Medication 600 mg/ Sodium Chloride 110 mls @ 220 mls/hr IV ONETIME ONE Stop: 06/21/21 12:14 Last Admin: 06/21/21 12:00 Dose: 220 mls/hr Documented by: Oxycodone/Acetaminophen (Acetaminophen/Oxycodone 325-5 Mg Tab) tab PO Q4H PRN PRN Reason: Pain relief Pantoprazole Sodium (Pantoprazole 40 Mg Tab.Cr) 40 mg PO DAILY [facility] Last Admin: 06/19/21 18:46 Dose: Not Given Documented by: Hydroxychloroquine (200 Mg Tab) 2 each PO DAILY [facility] Last Admin: 06/20/21 08:31 Dose: 2 each Documented by: Azathioprine 50 Mg (Tab) 2.5 each PO DAILY [facility] Last Admin: 06/20/21 08:31 Dose: 2.5 each Documented by: Prednisone (Prednisone 20 Mg Tab) 40 mg PO DAILY [facility] Last Admin: 06/19/21 18:46 Dose: Not Given Documented by: - Exam General: Alert, Oriented Lungs: Clear to Auscultation, Normal Respiratory Effort Cardiovascular: Regular Rate, Regular Rhythm GI/Abdominal Exam: Soft, Non-Tender, Distended Extremities: Pedal Edema Psy/Mental Status: Alert - Patient Data Lab Results Last 24 hrs: Laboratory Results - last 24 hr 06/21/21 06/21/21 Range/Units 06:00 07:45 WBC 14.48 H (4.0-11.0) K/uL RBC 2.43 L (4.30-5.90) M/uL Hgb 8.4 L (12.0-16.0) g/dL Hct 24.6 L (36.0-46.0) % MCV 101.2 H (80.0-98.0) fL MCH 34.6 H (27.0-32.0) pg MCHC 34.1 (31.0-37.0) g/dL RDW Std Deviation 55.8 (28.0-62.0) fl RDW Coeff of Go 15 (11.0-15.0) % Plt Count 233 (150-400) K/uL MPV 11.60 (7.40-12.00) fL Neut % (Auto) 89.3 H (48.0-80.0) % Lymph % (Auto) 7.7 L (16.0-40.0) % [place] % (Auto) 2.6 (0.0-15.0) % Eos % (Auto) 0.3 (0.0-7.0) % Baso % (Auto) 0.1 (0.0-1.5) % Neut # (Auto) 12.9 H (1.4-5.7) K/uL Lymph # (Auto) 1.1 (0.6-2.4) K/uL [place] # (Auto) 0.4 (0.0-0.8) K/uL Eos # (Auto) 0.0 (0.0-0.7) K/uL Baso # (Auto) 0.0 (0.0-0.1) K/uL Nucleated RBC % 0.4 /100WBC Nucleated RBCs # 0 K/uL Sodium 141 (136-145) mmol/L Potassium 5.2 H (3.5-5.1) mmol/L Chloride 107 (98-107) mmol/L Carbon Dioxide 25.8 (21.0-32.0) mmol/L BUN 36 H (7.0-18.0) mg/dL Creatinine 1.6 H (0.6-1.0) mg/dL Est Cr Clr Drug Dosing 46.38 mL/min Estimated GFR (MDRD) 44.7 ml/min Glucose 81 (74-106) mg/dL Calcium 7.0 L (8.5-10.1) mg/dL Total Bilirubin 0.4 (0.2-1.0) mg/dL AST 26 (15-37) IU/L ALT 33 (14-63) IU/L Alkaline Phosphatase 60 (46-116) U/L Total Protein 3.9 L (6.4-8.2) g/dL Albumin 1.1 L (3.4-5.0) g/dL Globulin 2.8 (2.6-4.0) g/dL Albumin/Globulin Ratio 0.4 L (0.9-1.6) Result Diagrams: 06/21/21 07:45 06/21/21 06:00 Sepsis Event Note - Evaluation Sepsis Screening Result: No Definite Risk - Focused Exam Vital Signs: Vital Signs Temp Pulse Resp BP Pulse Ox 06/21/21 17:00 96.9 F 99 18 156/100 H 97 06/21/21 13:12 98.2 F 93 14 152/91 H 100 06/21/21 12:57 98.4 F 95 16 156/94 H 100 06/21/21 12:51 98 F 91 16 156/91 H 100 06/21/21 12:42 98 F 96 16 156/91 H 99 06/21/21 12:38 97.8 F 94 16 158/95 H 100 06/21/21 12:28 98 F 99 16 165/97 H 100 06/21/21 12:22 99 16 152/98 H 99 06/21/21 12:15 97.5 F 98 18 152/98 H 99 06/21/21 12:12 97.4 F 101 H 16 168/99 H 100 06/21/21 12:10 97.5 F 95 16 159/80 H 100 06/21/21 12:06 98 F 100 16 156/95 H 100 06/21/21 12:00 98 F 98 16 147/94 H 99 - Problem List & Annotations (1) ADAMA (acute kidney injury) SNOMED Code(s): 46328293, 23143845 Code(s): N17.9 - ACUTE KIDNEY FAILURE, UNSPECIFIED Status: Acute Current Visit: Yes (2) Chest pain SNOMED Code(s): 80469665 Code(s): R07.9 - CHEST PAIN, UNSPECIFIED Status: Acute Current Visit: Yes (3) Constipation SNOMED Code(s): 90598438 Code(s): K59.00 - CONSTIPATION, UNSPECIFIED Status: Acute Current Visit: Yes (4) HTN (hypertension) SNOMED Code(s): 67794768 Code(s): I10 - ESSENTIAL (PRIMARY) HYPERTENSION Status: Acute Current Visit: Yes (5) SLE (systemic lupus erythematosus) SNOMED Code(s): 51455992 Code(s): M32.9 - SYSTEMIC LUPUS ERYTHEMATOSUS, UNSPECIFIED Status: Acute Current Visit: Yes (6) Lupus SNOMED Code(s): 882018926 Code(s): M32.9 - SYSTEMIC LUPUS ERYTHEMATOSUS, UNSPECIFIED Status: Acute Current Visit: No (7) Renal insufficiency SNOMED Code(s): 431614404, 365035510 Code(s): N28.9 - DISORDER OF KIDNEY AND URETER, UNSPECIFIED Status: Acute Current Visit: No - Problem List Review Problem List Initiated/Reviewed/Updated: Yes - My Orders Last 24 Hours: My Active Orders 06/21/21 10:27 EPINEPHrine [Adrenalin] 0.3 mg IM ASDIRECTED PRN Famotidine [Pepcid] 20 mg IVPUSH ASDIRECTED PRN diphenhydrAMINE [Benadryl] 50 mg IVPUSH ASDIRECTED PRN methylPREDNISolone Sod Succ [Solu-MEDROL] 125 mg IVPUSH ASDIRECTED PRN 06/21/21 10:30 Sodium Chloride 0.9% [Saline Flush] 30 ml FLUSH ASDIRECTED - Plan Plan:: SLE- Spoke with Dr. Chilel, nephrology at [facility]. Per recommendations, hold azathioprine for 2 weeks, continue prednisone 40 mg daily, continue hydroxychloroquine, will discuss Cytoxan at next appointment. Patient to be followed up in [address] Chilel. Clinic contact number , address [address] [facility], [address]nd [address]. Edema1 mg IV Bumex twice daily, strict I's and O's, adjust medication as needed ADAMA-likely secondary to SLE, creatinine improved from yesterday COVID-19 Patient received Regeneron, monoclonal antibody today
[2021-06-21] MEDS ORDERED: Bisacodyl 10 MG Supp RECTAL ONE (22:45)
[2021-06-22] MEDS: Heparin Sodium 5,000 Units/ML Vial SUBCUT SCH ×3 (00:19→17:13)
[2021-06-22] MEDS: Bumetanide 1 MG/4 ML MDV IVPUSH SCH ×2 (05:37→17:13)
[2021-06-22 06:43] LABS: CARBON DIOXIDE,CO2 27.1 mmol/L (21.0-32.0)
[2021-06-22] MEDS: predniSONE 20 MG Tab PO SCH (09:58)
[2021-06-22] MEDS: Hydroxychloroquine 200 MG Tab PO SCH ×2 (09:58→20:46)
[2021-06-22] MEDS: Pantoprazole 40 MG Tab.CR PO SCH (09:58)
--- NOTE | 2021-06-22 14:36 | PCM.PN ---
- General Info Date of Service: 06/22/21 Subjective Update: Patient states mild fatigue, but states that she feels better today due to reduction in fluid. Patient states decreased abdominal distention. Patient denies fever, chills, nausea, vomiting. Patient tolerated monoclonal antibody transfusion yesterday with no side effects. - Review of Systems General: Denies: Fever, Chills Pulmonary: Denies: Shortness of Breath, Cough Cardiovascular: Denies: Palpitations, Dyspnea on Exertion, Orthopnea Gastrointestinal: Denies: Abdominal Pain, Decreased Appetite, Diarrhea, Nausea, Vomiting Neurological: Denies: Confusion, Dizziness - Patient Data Vitals - Most Recent: Last Vital Signs Temp 97.1 F 06/22/21 12:00 Pulse 85 06/22/21 12:00 Resp 18 06/22/21 12:00 BP 154/101 H 06/22/21 12:00 Pulse Ox 94 L 06/22/21 12:00 Weight - Most Recent: 150 lb 7 oz I&O - Last 24 Hours: Intake & Output 06/21/21 06/22/21 06/22/21 22:59 06:59 14:59 Intake Total 800 700 Output Total 400 Balance 800 300 Lab Results Last 24 Hours: Laboratory Results - last 24 hr 06/20/21 06/20/21 06/22/21 Range/Units 16:56 16:56 05:25 WBC 14.22 H (4.0-11.0) K/uL RBC 2.56 L (4.30-5.90) M/uL Hgb 8.8 L (12.0-16.0) g/dL Hct 25.8 L (36.0-46.0) % MCV 100.8 H (80.0-98.0) fL MCH 34.4 H (27.0-32.0) pg MCHC 34.1 (31.0-37.0) g/dL RDW Std Deviation 55.9 (28.0-62.0) fl RDW Coeff of Go 16 H (11.0-15.0) % Plt Count 272 (150-400) K/uL MPV 11.70 (7.40-12.00) fL Neut % (Auto) 91.1 H (48.0-80.0) % Lymph % (Auto) 5.9 L (16.0-40.0) % Anson % (Auto) 2.8 (0.0-15.0) % Eos % (Auto) 0.1 (0.0-7.0) % Baso % (Auto) 0.1 (0.0-1.5) % Neut # (Auto) 13.0 H (1.4-5.7) K/uL Lymph # (Auto) 0.8 (0.6-2.4) K/uL Anson # (Auto) 0.4 (0.0-0.8) K/uL Eos # (Auto) 0.0 (0.0-0.7) K/uL Baso # (Auto) 0.0 (0.0-0.1) K/uL Nucleated RBC % 0.0 /100WBC Nucleated RBCs # 0 K/uL Sodium (136-145) mmol/L Potassium (3.5-5.1) mmol/L Chloride (98-107) mmol/L Carbon Dioxide (21.0-32.0) mmol/L BUN (7.0-18.0) mg/dL Creatinine (0.6-1.0) mg/dL Est Cr Clr Drug Dosing mL/min Estimated GFR (MDRD) ml/min Glucose (74-106) mg/dL Calcium (8.5-10.1) mg/dL Total Bilirubin (0.2-1.0) mg/dL AST (15-37) IU/L ALT (14-63) IU/L Alkaline Phosphatase (46-116) U/L Total Protein (6.4-8.2) g/dL Albumin (3.4-5.0) g/dL Globulin (2.6-4.0) g/dL Albumin/Globulin Ratio (0.9-1.6) Complement C3 78 L (87-200) mg/dL Complement C4 26.4 (19.0-52.0) mg/dL 06/22/21 Range/Units 05:25 WBC (4.0-11.0) K/uL RBC (4.30-5.90) M/uL Hgb (12.0-16.0) g/dL Hct (36.0-46.0) % MCV (80.0-98.0) fL MCH (27.0-32.0) pg MCHC (31.0-37.0) g/dL RDW Std Deviation (28.0-62.0) fl RDW Coeff of Go (11.0-15.0) % Plt Count (150-400) K/uL MPV (7.40-12.00) fL Neut % (Auto) (48.0-80.0) % Lymph % (Auto) (16.0-40.0) % Anson % (Auto) (0.0-15.0) % Eos % (Auto) (0.0-7.0) % Baso % (Auto) (0.0-1.5) % Neut # (Auto) (1.4-5.7) K/uL Lymph # (Auto) (0.6-2.4) K/uL Anson # (Auto) (0.0-0.8) K/uL Eos # (Auto) (0.0-0.7) K/uL Baso # (Auto) (0.0-0.1) K/uL Nucleated RBC % /100WBC Nucleated RBCs # K/uL Sodium 141 (136-145) mmol/L Potassium 5.0 (3.5-5.1) mmol/L Chloride 107 (98-107) mmol/L Carbon Dioxide 27.1 (21.0-32.0) mmol/L BUN 34 H (7.0-18.0) mg/dL Creatinine 1.6 H (0.6-1.0) mg/dL Est Cr Clr Drug Dosing 46.38 mL/min Estimated GFR (MDRD) 44.7 ml/min Glucose 83 (74-106) mg/dL Calcium 7.1 L (8.5-10.1) mg/dL Total Bilirubin 0.3 (0.2-1.0) mg/dL AST 35 (15-37) IU/L ALT 73 H (14-63) IU/L Alkaline Phosphatase 71 (46-116) U/L Total Protein 4.2 L (6.4-8.2) g/dL Albumin 1.3 L (3.4-5.0) g/dL Globulin 2.9 (2.6-4.0) g/dL Albumin/Globulin Ratio 0.5 L (0.9-1.6) Complement C3 (87-200) mg/dL Complement C4 (19.0-52.0) mg/dL Med Orders - Current: Current Medications Albuterol/Ipratropium (Albuterol/Ipratropium 3.0-0.5 Mg/3 Ml Neb Soln) 3 ml NEB Q8HRRT PRN PRN Reason: Shortness of Breath Last Admin: 06/21/21 12:50 Dose: 3 ml Documented by: Bumetanide (Bumetanide 1 Mg/4 Ml Mdv) 1 mg IVPUSH Q12H [facility] Last Admin: 06/22/21 05:37 Dose: 1 mg Documented by: Diphenhydramine HCl (Diphenhydramine 50 Mg/Ml Sdv) 50 mg IVPUSH ASDIRECTED PRN PRN Reason: hypersensitivity reaction Epinephrine HCl (Epinephrine 1 Mg/1 Ml Amp) 0.3 mg IM ASDIRECTED PRN PRN Reason: hypersensitivity reaction Famotidine (Famotidine 20 Mg/2 Ml Sdv) 20 mg IVPUSH ASDIRECTED PRN PRN Reason: hypersensitivity reaction Heparin Sodium (Porcine) (Heparin Sodium 5,000 Units/Ml Vial) 5,000 units SUBCUT Q8H [facility] Last Admin: 06/22/21 09:56 Dose: 5,000 units Documented by: Methylprednisolone Sodium Succinate (Methylprednisolone Sodium Succinate 125 Mg/2 Ml Sdv) 125 mg IVPUSH ASDIRECTED PRN PRN Reason: hypersensitivity reaction Morphine Sulfate (Morphine 2 Mg/Ml Syringe) 1 mg IVPUSH Q4H PRN PRN Reason: Chest Pain Ondansetron HCl (Ondansetron 4 Mg/2 Ml Sdv) 4 mg IVPUSH Q4H PRN PRN Reason: Nausea Amlodipine 10 Mg Tab 1 each PO DAILY [facility] Last Admin: 06/22/21 09:57 Dose: 1 each Documented by: Pantoprazole 40 Mg (Tab.Cr) 1 each PO DAILY [facility] Last Admin: 06/22/21 09:58 Dose: 1 each Documented by: Prednisone 20 Mg Tab 2 each PO DAILY [facility] Last Admin: 06/22/21 09:58 Dose: 2 each Documented by: Hydroxychloroquine (200 Mg Tab) 1 each PO BID [facility] Last Admin: 06/22/21 09:58 Dose: 1 each Documented by: Polyethylene Glycol (Polyethylene Glycol 3350 Powder 17 Gm Packet) 17 gm PO BEDTIME PRN PRN Reason: Constipation Sodium Chloride (Sodium Chloride 0.9% 10 Ml Syringe) 30 ml FLUSH ASDIRECTED DEJON Discontinued Medications Amlodipine Besylate (Amlodipine 5 Mg Tab) 10 mg PO DAILY [facility] Last Admin: 06/19/21 18:45 Dose: Not Given Documented by: Azathioprine (Azathioprine 50 Mg Tab) 150 mg PO DAILY [facility] Last Admin: 06/19/21 18:44 Dose: Not Given Documented by: Bisacodyl (Bisacodyl 10 Mg Supp) 10 mg RECTAL ONETIME ONE Stop: 06/21/21 22:46 Last Admin: 06/21/21 23:08 Dose: 10 mg Documented by: Bumetanide (Bumetanide 1 Mg Tab) 2 mg PO DAILY [facility] Last Admin: 06/20/21 11:21 Dose: 2 mg Documented by: Bumetanide (Bumetanide 1 Mg/4 Ml Mdv) 1 mg IVPUSH BID [facility] Furosemide (Furosemide 40 Mg/4 Ml Vial) 40 mg IVPUSH NOW ONE Stop: 06/19/21 17:01 Last Admin: 06/19/21 18:26 Dose: 40 mg Documented by: Hydroxychloroquine Sulfate (Hydroxychloroquine 200 Mg Tab) 400 mg PO DAILY [facility] Last Admin: 06/19/21 18:45 Dose: Not Given Documented by: Non-Formulary Medication 600 mg/ Non-Formulary Medication 600 mg/ Sodium Chloride 110 mls @ 220 mls/hr IV ONETIME ONE Stop: 06/21/21 12:14 Last Admin: 06/21/21 12:00 Dose: 220 mls/hr Documented by: Oxycodone/Acetaminophen (Acetaminophen/Oxycodone 325-5 Mg Tab) tab PO Q4H PRN PRN Reason: Pain relief Pantoprazole Sodium (Pantoprazole 40 Mg Tab.Cr) 40 mg PO DAILY [facility] Last Admin: 06/19/21 18:46 Dose: Not Given Documented by: Hydroxychloroquine (200 Mg Tab) 2 each PO DAILY [facility] Last Admin: 06/20/21 08:31 Dose: 2 each Documented by: Azathioprine 50 Mg (Tab) 2.5 each PO DAILY [facility] Last Admin: 06/20/21 08:31 Dose: 2.5 each Documented by: Prednisone (Prednisone 20 Mg Tab) 40 mg PO DAILY [facility] Last Admin: 06/19/21 18:46 Dose: Not Given Documented by: - Exam General: Alert, Oriented Lungs: Clear to Auscultation, Normal Respiratory Effort Cardiovascular: Regular Rate, Regular Rhythm GI/Abdominal Exam: Soft, Non-Tender, Distended Extremities: Pedal Edema (1+) Psy/Mental Status: Alert - Patient Data Lab Results Last 24 hrs: Laboratory Results - last 24 hr 06/20/21 06/20/21 06/22/21 Range/Units 16:56 16:56 05:25 WBC 14.22 H (4.0-11.0) K/uL RBC 2.56 L (4.30-5.90) M/uL Hgb 8.8 L (12.0-16.0) g/dL Hct 25.8 L (36.0-46.0) % MCV 100.8 H (80.0-98.0) fL MCH 34.4 H (27.0-32.0) pg MCHC 34.1 (31.0-37.0) g/dL RDW Std Deviation 55.9 (28.0-62.0) fl RDW Coeff of Go 16 H (11.0-15.0) % Plt Count 272 (150-400) K/uL MPV 11.70 (7.40-12.00) fL Neut % (Auto) 91.1 H (48.0-80.0) % Lymph % (Auto) 5.9 L (16.0-40.0) % Anson % (Auto) 2.8 (0.0-15.0) % Eos % (Auto) 0.1 (0.0-7.0) % Baso % (Auto) 0.1 (0.0-1.5) % Neut # (Auto) 13.0 H (1.4-5.7) K/uL Lymph # (Auto) 0.8 (0.6-2.4) K/uL Anson # (Auto) 0.4 (0.0-0.8) K/uL Eos # (Auto) 0.0 (0.0-0.7) K/uL Baso # (Auto) 0.0 (0.0-0.1) K/uL Nucleated RBC % 0.0 /100WBC Nucleated RBCs # 0 K/uL Sodium (136-145) mmol/L Potassium (3.5-5.1) mmol/L Chloride (98-107) mmol/L Carbon Dioxide (21.0-32.0) mmol/L BUN (7.0-18.0) mg/dL Creatinine (0.6-1.0) mg/dL Est Cr Clr Drug Dosing mL/min Estimated GFR (MDRD) ml/min Glucose (74-106) mg/dL Calcium (8.5-10.1) mg/dL Total Bilirubin (0.2-1.0) mg/dL AST (15-37) IU/L ALT (14-63) IU/L Alkaline Phosphatase (46-116) U/L Total Protein (6.4-8.2) g/dL Albumin (3.4-5.0) g/dL Globulin (2.6-4.0) g/dL Albumin/Globulin Ratio (0.9-1.6) Complement C3 78 L (87-200) mg/dL Complement C4 26.4 (19.0-52.0) mg/dL 06/22/21 Range/Units 05:25 WBC (4.0-11.0) K/uL RBC (4.30-5.90) M/uL Hgb (12.0-16.0) g/dL Hct (36.0-46.0) % MCV (80.0-98.0) fL MCH (27.0-32.0) pg MCHC (31.0-37.0) g/dL RDW Std Deviation (28.0-62.0) fl RDW Coeff of Go (11.0-15.0) % Plt Count (150-400) K/uL MPV (7.40-12.00) fL Neut % (Auto) (48.0-80.0) % Lymph % (Auto) (16.0-40.0) % Anson % (Auto) (0.0-15.0) % Eos % (Auto) (0.0-7.0) % Baso % (Auto) (0.0-1.5) % Neut # (Auto) (1.4-5.7) K/uL Lymph # (Auto) (0.6-2.4) K/uL Anson # (Auto) (0.0-0.8) K/uL Eos # (Auto) (0.0-0.7) K/uL Baso # (Auto) (0.0-0.1) K/uL Nucleated RBC % /100WBC Nucleated RBCs # K/uL Sodium 141 (136-145) mmol/L Potassium 5.0 (3.5-5.1) mmol/L Chloride 107 (98-107) mmol/L Carbon Dioxide 27.1 (21.0-32.0) mmol/L BUN 34 H (7.0-18.0) mg/dL Creatinine 1.6 H (0.6-1.0) mg/dL Est Cr Clr Drug Dosing 46.38 mL/min Estimated GFR (MDRD) 44.7 ml/min Glucose 83 (74-106) mg/dL Calcium 7.1 L (8.5-10.1) mg/dL Total Bilirubin 0.3 (0.2-1.0) mg/dL AST 35 (15-37) IU/L ALT 73 H (14-63) IU/L Alkaline Phosphatase 71 (46-116) U/L Total Protein 4.2 L (6.4-8.2) g/dL Albumin 1.3 L (3.4-5.0) g/dL Globulin 2.9 (2.6-4.0) g/dL Albumin/Globulin Ratio 0.5 L (0.9-1.6) Complement C3 (87-200) mg/dL Complement C4 (19.0-52.0) mg/dL Result Diagrams: 06/22/21 05:25 06/22/21 05:25 Sepsis Event Note - Evaluation Sepsis Screening Result: No Definite Risk - Focused Exam Vital Signs: Vital Signs Temp Pulse Resp BP Pulse Ox 06/22/21 12:00 97.1 F 85 18 154/101 H 94 L 06/22/21 08:38 97.2 F 97 16 153/99 H 97 06/22/21 04:00 95 18 150/103 H 99 - Problem List & Annotations (1) ADAMA (acute kidney injury) SNOMED Code(s): 07548786, 27257028 Code(s): N17.9 - ACUTE KIDNEY FAILURE, UNSPECIFIED Status: Acute Current Visit: Yes (2) Chest pain SNOMED Code(s): 05801906 Code(s): R07.9 - CHEST PAIN, UNSPECIFIED Status: Acute Current Visit: Yes (3) Constipation SNOMED Code(s): 96391136 Code(s): K59.00 - CONSTIPATION, UNSPECIFIED Status: Acute Current Visit: Yes (4) HTN (hypertension) SNOMED Code(s): 19030659 Code(s): I10 - ESSENTIAL (PRIMARY) HYPERTENSION Status: Acute Current Visit: Yes (5) SLE (systemic lupus erythematosus) SNOMED Code(s): 37682541 Code(s): M32.9 - SYSTEMIC LUPUS ERYTHEMATOSUS, UNSPECIFIED Status: Acute Current Visit: Yes (6) Lupus SNOMED Code(s): 910335201 Code(s): M32.9 - SYSTEMIC LUPUS ERYTHEMATOSUS, UNSPECIFIED Status: Acute Current Visit: No (7) Renal insufficiency SNOMED Code(s): 305914674, 634669563 Code(s): N28.9 - DISORDER OF KIDNEY AND URETER, UNSPECIFIED Status: Acute Current Visit: No - Problem List Review Problem List Initiated/Reviewed/Updated: Yes - My Orders Last 24 Hours: My Active Orders 06/22/21 Lunch Fluid Restriction [DIET] - Plan Plan:: SLE- Spoke with Dr. Chilel, nephrology at [facility]. Per recommendations, hold azathioprine for 2 weeks, continue prednisone 40 mg daily, continue hydroxychloroquine, will discuss Cytoxan at next appointment. Patient to be followed up in [address] Chilel. Clinic contact number [phone], address [address] [facility], 2nd floor. Edema1 mg IV Bumex twice daily, strict I's and O's, fluid restrict to 1500ml daily ADAMA-likely secondary to SLE, creatinine improved from yesterday COVID-19 Patient received Regeneron, monoclonal antibody yesterday with no side effects
[2021-06-23] MEDS: Heparin Sodium 5,000 Units/ML Vial SUBCUT SCH ×3 (00:17→18:10)
[2021-06-23] MEDS: Bumetanide 1 MG/4 ML MDV IVPUSH SCH ×2 (05:08→18:10)
[2021-06-23 08:05] LABS: POTASSIUM,K 4.7 mmol/L (3.5-5.1)
[2021-06-23] MEDS: Pantoprazole 40 MG Tab.CR PO SCH (08:39)
[2021-06-23] MEDS: predniSONE 20 MG Tab PO SCH (08:40)
[2021-06-23] MEDS: Hydroxychloroquine 200 MG Tab PO SCH ×2 (08:40→21:37)
--- NOTE | 2021-06-23 10:56 | CONS ---
DATE OF CONSULTATION: 06/22/2021 DATE OF : 1985 PRIMARY CARE PHYSICIAN: Mila Arellano MD REASON FOR CONSULTATION: Troponin elevation. HISTORY OF PRESENT ILLNESS: This is a 35-year-old female, [place] , with history of SLE with lupus nephritis, GERD, hypertension, anxiety, and depression, and she was recently admitted to the hospital due to flare of lupus. She went to ER in [place] because of chest pain and dizzy spell. At that time, they checked a CT angiogram, and it is showing bilateral pleural effusion as well as she was tested for COVID, which was positive and she was transferred to [place] due to the bed availability. The reason that the patient was consulted to me because also of the troponin elevation. Troponin was checked at the ER in [place], it was 0.08 and when it was repeated in our hospital, it was coming down to a 0.06. EKG was unremarkable. She stated that like 1 day prior to the ER visit, she started having chest pain, when she described the sharp pain on the right side, radiated from the right-sided parasternal border going around to her back. It comes and goes, could last for an hour and she rated like 7 to 8 on 10 pain scale. Sometimes when she takes a deep breath, it gets worse. PAST MEDICAL HISTORY: Including lupus nephritis, SLE, depression, hypertension, and on chronic steroid. ALLERGIES: She is allergic to sulfa. MEDICATIONS: Home medications including prednisone, which was recently increased from 20 mg once a day to 40 mg once a day. She was also on Bumex 1 mg once a day as well, labetalol 300 mg t.i.d., amlodipine 10, azathioprine, Plaquenil, and pantoprazole. FAMILY HISTORY: Family history of heart disease, diabetes type 2. SOCIAL HISTORY: She is a current smoker. She drinks tea. History of marijuana use. REVIEW OF SYSTEMS: Except indicated in HPI, she also reported neck swelling and just shortness of breath. PHYSICAL EXAMINATION: VITAL SIGNS: Initial vital signs 130/104 with blood pressure, heart rate of 81, O2 saturations is 100, and respirations 18. Presenting weight is 153 pounds. HEENT: Not pale. No jaundice. NECK: I do not appreciate JVD. LUNGS: Decreased breath sounds. Some crackles. HEART: Normal S1, S2. No murmur. ABDOMEN: Mildly distended. Bowel sounds present. EXTREMITIES: Legs, edema 1 to 2+. INVESTIGATIONS: Initial CBC: WBC 20, hematocrit of 25, and platelets of 241. Sodium 141, potassium 5.1, chloride 107, bicarbonate 26, BUN 39, creatinine 1.7, and glucose 129. Troponin; the first set was 0.06 that is coming down to 0.05 and 0.05. BNP 22. CRP 3.8. C3 was low, and protein was noted on the UA. Echocardiogram: Preserved ejection fraction, small pericardial effusion, and pleural effusion noted as well. No significant valvular heart disease. EKG on 06/18/2021: Sinus rhythm, heart rate of 79, NC 144, QRS 99, QTc 422, and ST abnormality in V1 to V3. I did not appreciate any Q-waves. ASSESSMENT AND PLAN: This is a 35-year-old female with history of lupus nephritis and systemic lupus erythematosus, hypertension, anxiety, depression, and current smoker; presented to the hospital due to bilateral pleural effusion, ascites, and anasarca most likely due to nephritis from lupus. Recommended to continue diuretics. Consider obtaining a consultation with Nephrology as well as Rheumatology. Her echocardiogram showing normal ejection fraction. No significant valvular abnormalities. Small pericardial effusion. No evidence of cardiac tamponade. Troponin elevation, it was mildly elevated, possibly due to acute kidney injury or demand ischemia. At this point, we will sign off and if any question or concern regarding cardiac aspect, please feel free to contact me at any time. PANKAJ / CORRY /[id number]
--- NOTE | 2021-06-23 16:42 | PCM.PN ---
- General Info Date of Service: 06/23/21 Subjective Update: Patient states she feels roughly the same as yesterday. Notes mild decrease in abdominal distention. Still notes edema in lower extremities bilaterally. Denies fever, chills, nausea, vomiting, chest pain, shortness of breath. Patient states mild chest tightness after Regeneron. - Review of Systems General: Reports: Fatigue. Denies: Fever, Chills Pulmonary: Denies: Shortness of Breath, Cough Cardiovascular: Denies: Chest Pain, Palpitations, Orthopnea, Edema Gastrointestinal: Reports: Decreased Appetite. Denies: Abdominal Pain, Diarrhea , Nausea, Vomiting Neurological: Denies: Confusion, Dizziness Psychiatric: Denies: Confusion - Patient Data Vitals - Most Recent: Last Vital Signs Temp 98.0 F 06/23/21 12:00 Pulse 89 06/23/21 12:00 Resp 20 06/23/21 12:00 BP 145/88 H 06/23/21 12:00 Pulse Ox 100 06/23/21 12:00 Weight - Most Recent: 149 lb 9 oz I&O - Last 24 Hours: Intake & Output 06/23/21 06/23/21 06/23/21 06:59 14:59 22:59 Intake Total 700 Output Total 1300 Balance -600 Lab Results Last 24 Hours: Laboratory Results - last 24 hr 06/23/21 06/23/21 Range/Units 06:00 06:00 WBC 9.12 (4.0-11.0) K/uL RBC 2.46 L (4.30-5.90) M/uL Hgb 8.6 L (12.0-16.0) g/dL Hct 24.9 L (36.0-46.0) % MCV 101.2 H (80.0-98.0) fL MCH 35.0 H (27.0-32.0) pg MCHC 34.5 (31.0-37.0) g/dL RDW Std Deviation 55.3 (28.0-62.0) fl RDW Coeff of Go 15 (11.0-15.0) % Plt Count 251 (150-400) K/uL MPV 11.50 (7.40-12.00) fL Neut % (Auto) 88.1 H (48.0-80.0) % Lymph % (Auto) 7.6 L (16.0-40.0) % [place] % (Auto) 4.1 (0.0-15.0) % Eos % (Auto) 0.2 (0.0-7.0) % Baso % (Auto) 0.0 (0.0-1.5) % Neut # (Auto) 8.0 H (1.4-5.7) K/uL Lymph # (Auto) 0.7 (0.6-2.4) K/uL [place] # (Auto) 0.4 (0.0-0.8) K/uL Eos # (Auto) 0.0 (0.0-0.7) K/uL Baso # (Auto) 0.0 (0.0-0.1) K/uL Nucleated RBC % 0.3 /100WBC Nucleated RBCs # 0 K/uL Sodium 141 (136-145) mmol/L Potassium 4.7 (3.5-5.1) mmol/L Chloride 106 (98-107) mmol/L Carbon Dioxide 28.0 (21.0-32.0) mmol/L BUN 29 H (7.0-18.0) mg/dL Creatinine 1.5 H (0.6-1.0) mg/dL Est Cr Clr Drug Dosing 49.74 mL/min Estimated GFR (MDRD) 48.2 ml/min Glucose 76 (74-106) mg/dL Calcium 7.3 L (8.5-10.1) mg/dL Sam Results Last 24 Hours: Microbiology 06/20/21 17:15 Urine Culture - Preliminary Urine Med Orders - Current: Current Medications Albuterol/Ipratropium (Albuterol/Ipratropium 3.0-0.5 Mg/3 Ml Neb Soln) 3 ml NEB Q8HRRT PRN PRN Reason: Shortness of Breath Last Admin: 06/21/21 12:50 Dose: 3 ml Documented by: Bumetanide (Bumetanide 1 Mg/4 Ml Mdv) 1 mg IVPUSH Q12H DEJON Last Admin: 06/23/21 05:08 Dose: 1 mg Documented by: Diphenhydramine HCl (Diphenhydramine 50 Mg/Ml Sdv) 50 mg IVPUSH ASDIRECTED PRN PRN Reason: hypersensitivity reaction Epinephrine HCl (Epinephrine 1 Mg/1 Ml Amp) 0.3 mg IM ASDIRECTED PRN PRN Reason: hypersensitivity reaction Famotidine (Famotidine 20 Mg/2 Ml Sdv) 20 mg IVPUSH ASDIRECTED PRN PRN Reason: hypersensitivity reaction Heparin Sodium (Porcine) (Heparin Sodium 5,000 Units/Ml Vial) 5,000 units SUBCUT Q8H [facility] Last Admin: 06/23/21 08:43 Dose: 5,000 units Documented by: Methylprednisolone Sodium Succinate (Methylprednisolone Sodium Succinate 125 Mg/2 Ml Sdv) 125 mg IVPUSH ASDIRECTED PRN PRN Reason: hypersensitivity reaction Morphine Sulfate (Morphine 2 Mg/Ml Syringe) 1 mg IVPUSH Q4H PRN PRN Reason: Chest Pain Ondansetron HCl (Ondansetron 4 Mg/2 Ml Sdv) 4 mg IVPUSH Q4H PRN PRN Reason: Nausea Amlodipine 10 Mg Tab 1 each PO DAILY [facility] Last Admin: 06/23/21 08:39 Dose: 1 each Documented by: Pantoprazole 40 Mg (Tab.Cr) 1 each PO DAILY [facility] Last Admin: 06/23/21 08:39 Dose: 1 each Documented by: Prednisone 20 Mg Tab 2 each PO DAILY [facility] Last Admin: 06/23/21 08:40 Dose: 2 each Documented by: Hydroxychloroquine (200 Mg Tab) 1 each PO BID [facility] Last Admin: 06/23/21 08:40 Dose: 1 each Documented by: Polyethylene Glycol (Polyethylene Glycol 3350 Powder 17 Gm Packet) 17 gm PO BEDTIME PRN PRN Reason: Constipation Sodium Chloride (Sodium Chloride 0.9% 10 Ml Syringe) 30 ml FLUSH ASDIRECTED [facility] Discontinued Medications Amlodipine Besylate (Amlodipine 5 Mg Tab) 10 mg PO DAILY [facility] Last Admin: 06/19/21 18:45 Dose: Not Given Documented by: Azathioprine (Azathioprine 50 Mg Tab) 150 mg PO DAILY [facility] Last Admin: 06/19/21 18:44 Dose: Not Given Documented by: Bisacodyl (Bisacodyl 10 Mg Supp) 10 mg RECTAL ONETIME ONE Stop: 06/21/21 22:46 Last Admin: 06/21/21 23:08 Dose: 10 mg Documented by: Bumetanide (Bumetanide 1 Mg Tab) 2 mg PO DAILY [facility] Last Admin: 06/20/21 11:21 Dose: 2 mg Documented by: Bumetanide (Bumetanide 1 Mg/4 Ml Mdv) 1 mg IVPUSH BID [facility] Furosemide (Furosemide 40 Mg/4 Ml Vial) 40 mg IVPUSH NOW ONE Stop: 06/19/21 17:01 Last Admin: 06/19/21 18:26 Dose: 40 mg Documented by: Hydroxychloroquine Sulfate (Hydroxychloroquine 200 Mg Tab) 400 mg PO DAILY [facility] Last Admin: 06/19/21 18:45 Dose: Not Given Documented by: Non-Formulary Medication 600 mg/ Non-Formulary Medication 600 mg/ Sodium Chloride 110 mls @ 220 mls/hr IV ONETIME ONE Stop: 06/21/21 12:14 Last Admin: 06/21/21 12:00 Dose: 220 mls/hr Documented by: Oxycodone/Acetaminophen (Acetaminophen/Oxycodone 325-5 Mg Tab) tab PO Q4H PRN PRN Reason: Pain relief Pantoprazole Sodium (Pantoprazole 40 Mg Tab.Cr) 40 mg PO DAILY [facility] Last Admin: 06/19/21 18:46 Dose: Not Given Documented by: Hydroxychloroquine (200 Mg Tab) 2 each PO DAILY [facility] Last Admin: 06/20/21 08:31 Dose: 2 each Documented by: Azathioprine 50 Mg (Tab) 2.5 each PO DAILY [facility] Last Admin: 06/20/21 08:31 Dose: 2.5 each Documented by: Prednisone (Prednisone 20 Mg Tab) 40 mg PO DAILY [facility] Last Admin: 06/19/21 18:46 Dose: Not Given Documented by: - Exam Quality Assessment: No: Supplemental Oxygen General: Alert, Oriented Lungs: Clear to Auscultation, Normal Respiratory Effort Cardiovascular: Regular Rate, Regular Rhythm GI/Abdominal Exam: Soft, Non-Tender, Distended Extremities: Pedal Edema Psy/Mental Status: Alert - Patient Data Lab Results Last 24 hrs: Laboratory Results - last 24 hr 06/23/21 06/23/21 Range/Units 06:00 06:00 WBC 9.12 (4.0-11.0) K/uL RBC 2.46 L (4.30-5.90) M/uL Hgb 8.6 L (12.0-16.0) g/dL Hct 24.9 L (36.0-46.0) % MCV 101.2 H (80.0-98.0) fL MCH 35.0 H (27.0-32.0) pg MCHC 34.5 (31.0-37.0) g/dL RDW Std Deviation 55.3 (28.0-62.0) fl RDW Coeff of Go 15 (11.0-15.0) % Plt Count 251 (150-400) K/uL MPV 11.50 (7.40-12.00) fL Neut % (Auto) 88.1 H (48.0-80.0) % Lymph % (Auto) 7.6 L (16.0-40.0) % [place] % (Auto) 4.1 (0.0-15.0) % Eos % (Auto) 0.2 (0.0-7.0) % Baso % (Auto) 0.0 (0.0-1.5) % Neut # (Auto) 8.0 H (1.4-5.7) K/uL Lymph # (Auto) 0.7 (0.6-2.4) K/uL [place] # (Auto) 0.4 (0.0-0.8) K/uL Eos # (Auto) 0.0 (0.0-0.7) K/uL Baso # (Auto) 0.0 (0.0-0.1) K/uL Nucleated RBC % 0.3 /100WBC Nucleated RBCs # 0 K/uL Sodium 141 (136-145) mmol/L Potassium 4.7 (3.5-5.1) mmol/L Chloride 106 (98-107) mmol/L Carbon Dioxide 28.0 (21.0-32.0) mmol/L BUN 29 H (7.0-18.0) mg/dL Creatinine 1.5 H (0.6-1.0) mg/dL Est Cr Clr Drug Dosing 49.74 mL/min Estimated GFR (MDRD) 48.2 ml/min Glucose 76 (74-106) mg/dL Calcium 7.3 L (8.5-10.1) mg/dL Result Diagrams: 06/23/21 06:00 06/23/21 06:00 Sam Results Last 24 hrs: Microbiology 06/20/21 17:15 Urine Culture - Preliminary Urine Sepsis Event Note - Evaluation Sepsis Screening Result: No Definite Risk - Focused Exam Vital Signs: Vital Signs Temp Pulse Resp BP Pulse Ox 06/23/21 12:00 98.0 F 89 20 145/88 H 100 06/23/21 08:00 97.1 F 88 15 151/99 H 99 - Problem List & Annotations (1) ADAMA (acute kidney injury) SNOMED Code(s): 76344456, 54177047 Code(s): N17.9 - ACUTE KIDNEY FAILURE, UNSPECIFIED Status: Acute Current Visit: Yes (2) Chest pain SNOMED Code(s): 84775787 Code(s): R07.9 - CHEST PAIN, UNSPECIFIED Status: Acute Current Visit: Yes (3) Constipation SNOMED Code(s): 49266140 Code(s): K59.00 - CONSTIPATION, UNSPECIFIED Status: Acute Current Visit: Yes (4) HTN (hypertension) SNOMED Code(s): 09510965 Code(s): I10 - ESSENTIAL (PRIMARY) HYPERTENSION Status: Acute Current Visit: Yes (5) SLE (systemic lupus erythematosus) SNOMED Code(s): 40403847 Code(s): M32.9 - SYSTEMIC LUPUS ERYTHEMATOSUS, UNSPECIFIED Status: Acute Current Visit: Yes (6) Lupus SNOMED Code(s): 626096158 Code(s): M32.9 - SYSTEMIC LUPUS ERYTHEMATOSUS, UNSPECIFIED Status: Acute Current Visit: No (7) Renal insufficiency SNOMED Code(s): 199447976, 821640402 Code(s): N28.9 - DISORDER OF KIDNEY AND URETER, UNSPECIFIED Status: Acute Current Visit: No - Problem List Review Problem List Initiated/Reviewed/Updated: Yes - My Orders Last 24 Hours: My Active Orders 06/22/21 17:37 Code Status [Resuscitation Status] Routine - Plan Plan:: SLE- Spoke with Dr. Chilel, nephrology at [facility]. Per recommendations, hold azathioprine for 2 weeks, continue prednisone 40 mg daily, continue hydroxychloroquine, will discuss Cytoxan at next appointment. Patient to be followed up in [address] Chilel. Clinic contact number [phone], address [address] [place] [address], 2nd floor. Edema1 mg IV Bumex twice daily, strict I's and O's, fluid restrict to 1500ml daily. Patient output today was -1866ml. ADAMA-likely secondary to SLE, creatinine improved from yesterday COVID-19 Patient received Regeneron, monoclonal antibody, currently not hypoxic and not requiring supplemental oxygen Continue to diurese patient
[2021-06-24] MEDS: Heparin Sodium 5,000 Units/ML Vial SUBCUT SCH ×2 (00:41→08:26)
[2021-06-24] MEDS: Bumetanide 1 MG/4 ML MDV IVPUSH SCH (05:19)
[2021-06-24 07:26] LABS: CARBON DIOXIDE,CO2 28.4 mmol/L (21.0-32.0); POTASSIUM,K 4.1 mmol/L (3.5-5.1)
[2021-06-24] MEDS: Hydroxychloroquine 200 MG Tab PO SCH (08:27)
[2021-06-24] MEDS: predniSONE 20 MG Tab PO SCH (08:27)
[2021-06-24] MEDS: Pantoprazole 40 MG Tab.CR PO SCH (08:28)
[2021-06-24 08:32] VITALS: BP 151/110; PULSE 88
--- NOTE | 2021-06-24 12:11 | PCM.DCSUM1 ---
<Rolando Gifford - Last Filed: 06/24/21 12:37> Discharge Summary - Hospital Course Free Text/Narrative:: 35-year-old female with past medical history of SLE being treated with prednisone, hydroxychloroquine, azathioprine, CKD, GERD, hypertension, anxiety, depression, and recent COVID-19 positive diagnosis admitted for a 48-hour history of chest pain and suspected SLE flare. Patient was transferred from [place]. Patient also had a roughly 1 week history of shortness of breath, fatigue. Patient was recently hospitalized in May for hyperkalemia, fluid retention and worsening chronic kidney disease. On CBC, her white blood cells is 13.30, hemoglobin is 7.6, hematocrit is 23.7, platelet count is 190, MCV is increased at 106.8, PT is 9.4, INR is less than 0.93, D-dimer is increased at 1.47. On CMP, sodium is 136, potassium is 5.0, chloride is 103, carbon dioxide is 26, BUN is 38, creatinine is 1.9, estimated GFR is 37, glucose is 145, lipase is 187. Two troponin levels taking and decreasing were increased to 0.083 and 0.065. On ABGs, pH is 7.45, PCO2 is 33.3, PO2 is 70, HCO3 is 23, base excess is -0.2 Per documentation CTA performed at ED in [place]- CT angiogram, small bilateral pleural effusions were seen, no pulmonary embolism, pulmonary arteries were well opacified, no pericardial thickening, there is moderate patchy linear densities at both lung bases, bibasilar pneumonia cannot be excluded, with soft tissue edema in both breasts worse on the right, there was compressive atelectasis, peripancreatic fluid throughout, and intraperitoneal fluid present as well. Patient was admitted to the medical floor for observation of chest pain, SLE flare, fluid retention. Patient was restarted on prednisone, hydroxychloroquine, azathioprine was held based on nephrology's recommendation. Patient was also fluid restricted to 1500 mL a day, given 1 mg IV twice daily Bumex. At discharge patient lost roughly 4 pounds has significant fluid loss daily. Patient discharged home in stable condition patient with the recommendations to adhere to a 1500 mL fluid restriction, record daily weights and report any increases in weight to their primary care physician. Patient to resume Bumex medication and adjust dosage per primary care physician recommendations. Irma mancilla's MCV was elevated noted to be 101 at discharge, vitamin B12 low normal at 348, folic acid low normal at 10. Patient prescribed 0.8 mg folic acid and 1000 mcg vitamin B12 X 14 days. Patient to discuss with primary care physician and resume based on laboratory findings. Patient will follow up with PCP on Saturday06-26-21, will follow up with her current rheumatology and nephrology providers in [place]. - Discharge Data Discharge Date: 06/24/21 Discharge Disposition: Home, Self-Care 01 Condition: Good - Referral to Home Health Primary Care Physician: Mila Arellano MD - Discharge Diagnosis/Problem(s) (1) ADAMA (acute kidney injury) SNOMED Code(s): 52218746, 82563531 ICD Code: N17.9 - ACUTE KIDNEY FAILURE, UNSPECIFIED Status: Acute Current Visit: Yes (2) Chest pain SNOMED Code(s): 56837383 ICD Code: R07.9 - CHEST PAIN, UNSPECIFIED Status: Acute Current Visit: Yes (3) Constipation SNOMED Code(s): 56603474 ICD Code: K59.00 - CONSTIPATION, UNSPECIFIED Status: Acute Current Visit: Yes (4) HTN (hypertension) SNOMED Code(s): 68555949 ICD Code: I10 - ESSENTIAL (PRIMARY) HYPERTENSION Status: Acute Current Visit: Yes (5) SLE (systemic lupus erythematosus) SNOMED Code(s): 63177713 ICD Code: M32.9 - SYSTEMIC LUPUS ERYTHEMATOSUS, UNSPECIFIED Status: Acute Current Visit: Yes (6) Lupus SNOMED Code(s): 049487113 ICD Code: M32.9 - SYSTEMIC LUPUS ERYTHEMATOSUS, UNSPECIFIED Status: Acute Current Visit: No (7) Renal insufficiency SNOMED Code(s): 605435115, 213875737 ICD Code: N28.9 - DISORDER OF KIDNEY AND URETER, UNSPECIFIED Status: Acute Current Visit: No - Patient Instructions Diet: Usual Diet as Tolerated Fluid Restriction: 1500 mL Activity: As Tolerated Notify Provider of: Fever, Increased Pain, Nausea and/or Vomiting Other/Special Instructions: Per recommendation from nephrology, patient to hold azathioprine for 1 more week. Patient to resume medication per instructions of primary care physician and/or nephrology. Patient may resume all other previously prescribed home medications. Patient to adhere to a 1500 mL fluid restriction, patient to record daily weights and report any increases in weight to their primary care physician. Patient to resume Bumex medication and adjust dosage per primary care physician recommendations. - Discharge Plan Prescriptions/Med Rec: Folic Acid 0.8 mg PO DAILY #14 capsule Cyanocobalamin (Vitamin B12) [Vitamin B12] 1,000 mcg PO DAILY #14 tab Home Medications: Home Meds predniSONE [Prednisone] 40 mg PO DAILY 12/21/20 [History] oxyCODONE HCl/Acetaminophen [Percocet 5-325 mg Tablet] 1 - 2 each PO Q4H PRN #16 tablet 12/23/20 [Rx] Bumetanide [Bumex] 2 mg PO DAILY 06/18/21 [History] Famotidine 20 mg PO BEDTIME 06/18/21 [History] Hydroxychloroquine [Plaquenil] 200 mg PO BID 06/18/21 [History] Labetalol [Normodyne] 300 mg PO TID 06/18/21 [History] amLODIPine [Norvasc] 10 mg PO DAILY 06/18/21 [History] Calcium/Magnesium/Vitamin D3 [Gianni-Mag Complex 300-150 mg Tab] 1 tab PO DAILY 06/19/21 [History] Cholecalciferol (Vitd3)/Vit K2 [D3 + K2 Dots 1,000 Unit] 1 tab PO DAILY 06/19/21 [History] Ondansetron [Zofran ODT] 4 mg PO Q4HR PRN 06/19/21 [History] Pantoprazole [ProTONIX] 40 mg PO DAILY 06/19/21 [History] Atovaquone [Mepron 750 MG/5 ML Susp] 750 mg PO DAILY 06/20/21 [History] Cyanocobalamin (Vitamin B12) [Vitamin B12] 1,000 mcg PO DAILY #14 tab 06/24/21 [Rx] Folic Acid 0.8 mg PO DAILY #14 capsule 06/24/21 [Rx] Patient Handouts: Systemic Lupus Erythematosus, Adult, Constipation, Adult, Ovit-wh-Dubd, Vitamin B12 oral, Nonspecific Chest Pain, Adult, [id number]-Ahpn, Hypertension, Adult, Ersq-lu-Gleo, Folic Acid, Vitamin B9 tablets Referrals: Siddharth Beaver MD [Ordering Only Provider] - - Discharge Summary/Plan Comment DC Time >30 min.: Yes Total # of Minutes for Discharge Time: 40 - General Info Date of Service: 06/24/21 Subjective Update: Patient states she feels well, is happy about fluid loss in her abdominal area. Patient states she would like to go home today. - Review of Systems General: Denies: Fever, Chills Pulmonary: Denies: Shortness of Breath Cardiovascular: Denies: Dyspnea on Exertion, Orthopnea Gastrointestinal: Denies: Abdominal Pain, Decreased Appetite, Nausea, Vomiting - Patient Data Vitals - Most Recent: Last Vital Signs Temp 98.4 F 06/24/21 08:31 Pulse 88 06/24/21 08:31 Resp 18 06/24/21 08:31 BP 151/110 H 06/24/21 08:31 Pulse Ox 97 06/24/21 08:31 Weight - Most Recent: 67.585 kg I&O - Last 24 hours: Intake & Output 06/23/21 06/24/21 06/24/21 22:59 06:59 14:59 Intake Total 800 563 Output Total 900 1400 Balance -100 -837 Lab Results - Last 24 hrs: Laboratory Results - last 24 hr 06/20/21 06/24/21 06/24/21 Range/Units 16:56 06:30 06:30 WBC 8.39 (4.0-11.0) K/uL RBC 2.30 L (4.30-5.90) M/uL Hgb 7.9 L (12.0-16.0) g/dL Hct 23.4 L (36.0-46.0) % MCV 101.7 H (80.0-98.0) fL MCH 34.3 H (27.0-32.0) pg MCHC 33.8 (31.0-37.0) g/dL RDW Std Deviation 55.9 (28.0-62.0) fl RDW Coeff of Go 16 H (11.0-15.0) % Plt Count 251 (150-400) K/uL MPV 11.60 (7.40-12.00) fL Neut % (Auto) 83.4 H (48.0-80.0) % Lymph % (Auto) 11.1 L (16.0-40.0) % [place] % (Auto) 4.9 (0.0-15.0) % Eos % (Auto) 0.6 (0.0-7.0) % Baso % (Auto) 0.0 (0.0-1.5) % Neut # (Auto) 7.0 H (1.4-5.7) K/uL Lymph # (Auto) 0.9 (0.6-2.4) K/uL [place] # (Auto) 0.4 (0.0-0.8) K/uL Eos # (Auto) 0.1 (0.0-0.7) K/uL Baso # (Auto) 0.0 (0.0-0.1) K/uL Nucleated RBC % 0.4 /100WBC Nucleated RBCs # 0 K/uL Sodium 142 (136-145) mmol/L Potassium 4.1 (3.5-5.1) mmol/L Chloride 108 H (98-107) mmol/L Carbon Dioxide 28.4 (21.0-32.0) mmol/L BUN 29 H (7.0-18.0) mg/dL Creatinine 1.4 H (0.6-1.0) mg/dL Est Cr Clr Drug Dosing 53.30 mL/min Estimated GFR (MDRD) 52.2 ml/min Glucose 85 (74-106) mg/dL Calcium 7.4 L (8.5-10.1) mg/dL Magnesium 1.9 (1.8-2.4) mg/dL Vitamin B12 (193-986) pg/mL Folate (8.60-58.90) ng/mL Double Strand DNA Ab 11 H (0-9) IU/mL 06/24/21 Range/Units 06:30 WBC (4.0-11.0) K/uL RBC (4.30-5.90) M/uL Hgb (12.0-16.0) g/dL Hct (36.0-46.0) % MCV (80.0-98.0) fL MCH (27.0-32.0) pg MCHC (31.0-37.0) g/dL RDW Std Deviation (28.0-62.0) fl RDW Coeff of Go (11.0-15.0) % Plt Count (150-400) K/uL MPV (7.40-12.00) fL Neut % (Auto) (48.0-80.0) % Lymph % (Auto) (16.0-40.0) % [place] % (Auto) (0.0-15.0) % Eos % (Auto) (0.0-7.0) % Baso % (Auto) (0.0-1.5) % Neut # (Auto) (1.4-5.7) K/uL Lymph # (Auto) (0.6-2.4) K/uL [place] # (Auto) (0.0-0.8) K/uL Eos # (Auto) (0.0-0.7) K/uL Baso # (Auto) (0.0-0.1) K/uL Nucleated RBC % /100WBC Nucleated RBCs # K/uL Sodium (136-145) mmol/L Potassium (3.5-5.1) mmol/L Chloride (98-107) mmol/L Carbon Dioxide (21.0-32.0) mmol/L BUN (7.0-18.0) mg/dL Creatinine (0.6-1.0) mg/dL Est Cr Clr Drug Dosing mL/min Estimated GFR (MDRD) ml/min Glucose (74-106) mg/dL Calcium (8.5-10.1) mg/dL Magnesium (1.8-2.4) mg/dL Vitamin B12 384 (193-986) pg/mL Folate 10.90 (8.60-58.90) ng/mL Double Strand DNA Ab (0-9) IU/mL JASON Results - Last 24 hrs: Microbiology 06/20/21 17:15 Urine Culture - Final Urine Med Orders - Current: Current Medications Albuterol/Ipratropium (Albuterol/Ipratropium 3.0-0.5 Mg/3 Ml Neb Soln) 3 ml NEB Q8HRRT PRN PRN Reason: Shortness of Breath Last Admin: 06/21/21 12:50 Dose: 3 ml Documented by: Bumetanide (Bumetanide 1 Mg/4 Ml Mdv) 1 mg IVPUSH Q12H DEJON Last Admin: 06/24/21 05:19 Dose: 1 mg Documented by: Diphenhydramine HCl (Diphenhydramine 50 Mg/Ml Sdv) 50 mg IVPUSH ASDIRECTED PRN PRN Reason: hypersensitivity reaction Epinephrine HCl (Epinephrine 1 Mg/1 Ml Amp) 0.3 mg IM ASDIRECTED PRN PRN Reason: hypersensitivity reaction Famotidine (Famotidine 20 Mg/2 Ml Sdv) 20 mg IVPUSH ASDIRECTED PRN PRN Reason: hypersensitivity reaction Heparin Sodium (Porcine) (Heparin Sodium 5,000 Units/Ml Vial) 5,000 units SUBCUT Q8H [facility] [place] Last Admin: 06/24/21 08:26 Dose: 5,000 units Documented by: Methylprednisolone Sodium Succinate (Methylprednisolone Sodium Succinate 125 Mg/2 Ml Sdv) 125 mg IVPUSH ASDIRECTED PRN PRN Reason: hypersensitivity reaction Morphine Sulfate (Morphine 2 Mg/Ml Syringe) 1 mg IVPUSH Q4H PRN PRN Reason: Chest Pain Ondansetron HCl (Ondansetron 4 Mg/2 Ml Sdv) 4 mg IVPUSH Q4H PRN PRN Reason: Nausea Amlodipine 10 Mg Tab 1 each PO DAILY [facility] Last Admin: 06/24/21 08:26 Dose: 1 each Documented by: Pantoprazole 40 Mg (Tab.Cr) 1 each PO DAILY [facility] [place] Last Admin: 06/24/21 08:28 Dose: 1 each Documented by: Prednisone 20 Mg Tab 2 each PO DAILY [facility] [place] Last Admin: 06/24/21 08:27 Dose: 2 each Documented by: Hydroxychloroquine (200 Mg Tab) 1 each PO BID [facility] Last Admin: 06/24/21 08:27 Dose: 1 each Documented by: Polyethylene Glycol (Polyethylene Glycol 3350 Powder 17 Gm Packet) 17 gm PO BEDTIME PRN PRN Reason: Constipation Sodium Chloride (Sodium Chloride 0.9% 10 Ml Syringe) 30 ml FLUSH ASDIRECTED [facility] [place] Discontinued Medications Amlodipine Besylate (Amlodipine 5 Mg Tab) 10 mg PO DAILY [facility] [place] Last Admin: 06/19/21 18:45 Dose: Not Given Documented by: Azathioprine (Azathioprine 50 Mg Tab) 150 mg PO DAILY [facility] Last Admin: 06/19/21 18:44 Dose: Not Given Documented by: Bisacodyl (Bisacodyl 10 Mg Supp) 10 mg RECTAL ONETIME ONE Stop: 06/21/21 22:46 Last Admin: 06/21/21 23:08 Dose: 10 mg Documented by: Bumetanide (Bumetanide 1 Mg Tab) 2 mg PO DAILY [facility] [place] Last Admin: 06/20/21 11:21 Dose: 2 mg Documented by: Bumetanide (Bumetanide 1 Mg/4 Ml Mdv) 1 mg IVPUSH BID [facility] [place] Furosemide (Furosemide 40 Mg/4 Ml Vial) 40 mg IVPUSH NOW ONE Stop: 06/19/21 17:01 Last Admin: 06/19/21 18:26 Dose: 40 mg Documented by: Hydroxychloroquine Sulfate (Hydroxychloroquine 200 Mg Tab) 400 mg PO DAILY [facility] [place] Last Admin: 06/19/21 18:45 Dose: Not Given Documented by: Non-Formulary Medication 600 mg/ Non-Formulary Medication 600 mg/ Sodium Chloride 110 mls @ 220 mls/hr IV ONETIME ONE Stop: 06/21/21 12:14 Last Admin: 06/21/21 12:00 Dose: 220 mls/hr Documented by: Oxycodone/Acetaminophen (Acetaminophen/Oxycodone 325-5 Mg Tab) tab PO Q4H PRN PRN Reason: Pain relief Pantoprazole Sodium (Pantoprazole 40 Mg Tab.Cr) 40 mg PO DAILY [facility] [place] Last Admin: 06/19/21 18:46 Dose: Not Given Documented by: Hydroxychloroquine (200 Mg Tab) 2 each PO DAILY [facility] [place] Last Admin: 06/20/21 08:31 Dose: 2 each Documented by: Azathioprine 50 Mg (Tab) 2.5 each PO DAILY [facility] [place] Last Admin: 06/20/21 08:31 Dose: 2.5 each Documented by: Prednisone (Prednisone 20 Mg Tab) 40 mg PO DAILY [facility] Last Admin: 06/19/21 18:46 Dose: Not Given Documented by: - Exam Quality Assessment: Denies: Supplemental Oxygen Lungs: Reports: Clear to Auscultation, Normal Respiratory Effort Cardiovascular: Reports: Regular Rate, Regular Rhythm GI/Abdominal Exam: Soft, Distended (abdominal distension mild, improved since admission) <Dave Galvan - Last Filed: 06/24/21 15:56> Discharge Summary - Hospital Course Free Text/Narrative:: I have seen and evaluated the patient and agree with the residents note unless specified in my note - Referral to Home Health Primary Care Physician: Mila Arellano MD - Patient Data Vitals - Most Recent: Last Vital Signs Temp 36.9 C 06/24/21 08:31 Pulse 88 06/24/21 08:31 Resp 18 06/24/21 08:31 BP 151/110 H 06/24/21 08:31 Pulse Ox 97 06/24/21 08:31 I&O - Last 24 hours: Intake & Output 06/24/21 06/24/21 06/24/21 06:59 14:59 22:59 Intake Total 563 Output Total 1400 Balance -837 Lab Results - Last 24 hrs: Laboratory Results - last 24 hr 06/20/21 06/24/21 06/24/21 Range/Units 16:56 06:30 06:30 WBC 8.39 (4.0-11.0) K/uL RBC 2.30 L (4.30-5.90) M/uL Hgb 7.9 L (12.0-16.0) g/dL Hct 23.4 L (36.0-46.0) % MCV 101.7 H (80.0-98.0) fL MCH 34.3 H (27.0-32.0) pg MCHC 33.8 (31.0-37.0) g/dL RDW Std Deviation 55.9 (28.0-62.0) fl RDW Coeff of Go 16 H (11.0-15.0) % Plt Count 251 (150-400) K/uL MPV 11.60 (7.40-12.00) fL Neut % (Auto) 83.4 H (48.0-80.0) % Lymph % (Auto) 11.1 L (16.0-40.0) % [place] % (Auto) 4.9 (0.0-15.0) % Eos % (Auto) 0.6 (0.0-7.0) % Baso % (Auto) 0.0 (0.0-1.5) % Neut # (Auto) 7.0 H (1.4-5.7) K/uL Lymph # (Auto) 0.9 (0.6-2.4) K/uL [place] # (Auto) 0.4 (0.0-0.8) K/uL Eos # (Auto) 0.1 (0.0-0.7) K/uL Baso # (Auto) 0.0 (0.0-0.1) K/uL Nucleated RBC % 0.4 /100WBC Nucleated RBCs # 0 K/uL Sodium 142 (136-145) mmol/L Potassium 4.1 (3.5-5.1) mmol/L Chloride 108 H (98-107) mmol/L Carbon Dioxide 28.4 (21.0-32.0) mmol/L BUN 29 H (7.0-18.0) mg/dL Creatinine 1.4 H (0.6-1.0) mg/dL Est Cr Clr Drug Dosing 53.30 mL/min Estimated GFR (MDRD) 52.2 ml/min Glucose 85 (74-106) mg/dL Calcium 7.4 L (8.5-10.1) mg/dL Magnesium 1.9 (1.8-2.4) mg/dL Vitamin B12 (193-986) pg/mL Folate (8.60-58.90) ng/mL Double Strand DNA Ab 11 H (0-9) IU/mL 06/24/21 Range/Units 06:30 WBC (4.0-11.0) K/uL RBC (4.30-5.90) M/uL Hgb (12.0-16.0) g/dL Hct (36.0-46.0) % MCV (80.0-98.0) fL MCH (27.0-32.0) pg MCHC (31.0-37.0) g/dL RDW Std Deviation (28.0-62.0) fl RDW Coeff of Go (11.0-15.0) % Plt Count (150-400) K/uL MPV (7.40-12.00) fL Neut % (Auto) (48.0-80.0) % Lymph % (Auto) (16.0-40.0) % [place] % (Auto) (0.0-15.0) % Eos % (Auto) (0.0-7.0) % Baso % (Auto) (0.0-1.5) % Neut # (Auto) (1.4-5.7) K/uL Lymph # (Auto) (0.6-2.4) K/uL [place] # (Auto) (0.0-0.8) K/uL Eos # (Auto) (0.0-0.7) K/uL Baso # (Auto) (0.0-0.1) K/uL Nucleated RBC % /100WBC Nucleated RBCs # K/uL Sodium (136-145) mmol/L Potassium (3.5-5.1) mmol/L Chloride (98-107) mmol/L Carbon Dioxide (21.0-32.0) mmol/L BUN (7.0-18.0) mg/dL Creatinine (0.6-1.0) mg/dL Est Cr Clr Drug Dosing mL/min Estimated GFR (MDRD) ml/min Glucose (74-106) mg/dL Calcium (8.5-10.1) mg/dL Magnesium (1.8-2.4) mg/dL Vitamin B12 384 (193-986) pg/mL Folate 10.90 (8.60-58.90) ng/mL Double Strand DNA Ab (0-9) IU/mL JASON Results - Last 24 hrs: Microbiology 06/20/21 17:15 Urine Culture - Final Urine Med Orders - Current: Current Medications Albuterol/Ipratropium (Albuterol/Ipratropium 3.0-0.5 Mg/3 Ml Neb Soln) 3 ml NEB Q8HRRT PRN PRN Reason: Shortness of Breath Last Admin: 06/21/21 12:50 Dose: 3 ml Documented by: Bumetanide (Bumetanide 1 Mg/4 Ml Mdv) 1 mg IVPUSH Q12H DEJON Last Admin: 06/24/21 05:19 Dose: 1 mg Documented by: Diphenhydramine HCl (Diphenhydramine 50 Mg/Ml Sdv) 50 mg IVPUSH ASDIRECTED PRN PRN Reason: hypersensitivity reaction Epinephrine HCl (Epinephrine 1 Mg/1 Ml Amp) 0.3 mg IM ASDIRECTED PRN PRN Reason: hypersensitivity reaction Famotidine (Famotidine 20 Mg/2 Ml Sdv) 20 mg IVPUSH ASDIRECTED PRN PRN Reason: hypersensitivity reaction Heparin Sodium (Porcine) (Heparin Sodium 5,000 Units/Ml Vial) 5,000 units SUBCUT Q8H DEJON Last Admin: 06/24/21 08:26 Dose: 5,000 units Documented by: Methylprednisolone Sodium Succinate (Methylprednisolone Sodium Succinate 125 Mg/2 Ml Sdv) 125 mg IVPUSH ASDIRECTED PRN PRN Reason: hypersensitivity reaction Morphine Sulfate (Morphine 2 Mg/Ml Syringe) 1 mg IVPUSH Q4H PRN PRN Reason: Chest Pain Ondansetron HCl (Ondansetron 4 Mg/2 Ml Sdv) 4 mg IVPUSH Q4H PRN PRN Reason: Nausea Amlodipine 10 Mg Tab 1 each PO DAILY [facility] [place] Last Admin: 06/24/21 08:26 Dose: 1 each Documented by: Pantoprazole 40 Mg (Tab.Cr) 1 each PO DAILY [facility] [place] Last Admin: 06/24/21 08:28 Dose: 1 each Documented by: Prednisone 20 Mg Tab 2 each PO DAILY [facility] [place] Last Admin: 06/24/21 08:27 Dose: 2 each Documented by: Hydroxychloroquine (200 Mg Tab) 1 each PO BID [facility] [place] Last Admin: 06/24/21 08:27 Dose: 1 each Documented by: Polyethylene Glycol (Polyethylene Glycol 3350 Powder 17 Gm Packet) 17 gm PO BEDTIME PRN PRN Reason: Constipation Sodium Chloride (Sodium Chloride 0.9% 10 Ml Syringe) 30 ml FLUSH ASDIRECTED [facility] [place] Discontinued Medications Amlodipine Besylate (Amlodipine 5 Mg Tab) 10 mg PO DAILY [facility] [place] Last Admin: 06/19/21 18:45 Dose: Not Given Documented by: Azathioprine (Azathioprine 50 Mg Tab) 150 mg PO DAILY [facility] [place] Last Admin: 06/19/21 18:44 Dose: Not Given Documented by: Bisacodyl (Bisacodyl 10 Mg Supp) 10 mg RECTAL ONETIME ONE Stop: 06/21/21 22:46 Last Admin: 06/21/21 23:08 Dose: 10 mg Documented by: Bumetanide (Bumetanide 1 Mg Tab) 2 mg PO DAILY [facility] [place] Last Admin: 06/20/21 11:21 Dose: 2 mg Documented by: Bumetanide (Bumetanide 1 Mg/4 Ml Mdv) 1 mg IVPUSH BID [facility] [place] Furosemide (Furosemide 40 Mg/4 Ml Vial) 40 mg IVPUSH NOW ONE Stop: 06/19/21 17:01 Last Admin: 06/19/21 18:26 Dose: 40 mg Documented by: Hydroxychloroquine Sulfate (Hydroxychloroquine 200 Mg Tab) 400 mg PO DAILY [facility] [place] Last Admin: 06/19/21 18:45 Dose: Not Given Documented by: Non-Formulary Medication 600 mg/ Non-Formulary Medication 600 mg/ Sodium Chloride 110 mls @ 220 mls/hr IV ONETIME ONE Stop: 06/21/21 12:14 Last Admin: 06/21/21 12:00 Dose: 220 mls/hr Documented by: Oxycodone/Acetaminophen (Acetaminophen/Oxycodone 325-5 Mg Tab) tab PO Q4H PRN PRN Reason: Pain relief Pantoprazole Sodium (Pantoprazole 40 Mg Tab.Cr) 40 mg PO DAILY [facility] [place] [place] Last Admin: 06/19/21 18:46 Dose: Not Given Documented by: Hydroxychloroquine (200 Mg Tab) 2 each PO DAILY [facility] [place] Last Admin: 06/20/21 08:31 Dose: 2 each Documented by: Azathioprine 50 Mg (Tab) 2.5 each PO DAILY [facility] [place] [place] Last Admin: 06/20/21 08:31 Dose: 2.5 each Documented by: Prednisone (Prednisone 20 Mg Tab) 40 mg PO DAILY [facility] [place] Last Admin: 06/19/21 18:46 Dose: Not Given Documented by:
--- NOTE | 2021-06-26 09:35 | ECHO ---
EXAM DATE: 06/20/21 PATIENT'S AGE: 35 The ECHO report has been scanned into [employer] and can be seen in this patient's EMR (Electronic Medical Record) under the REPORTS section. The report has also been scanned into PACS. CAMELIA
== END 2021-06-24 17:45 | disposition home or self-care (01) | DRG 545 ==
LOC: MW.MS 13:56 → OBSVTOIN 06-20 13:56
PROVIDERS: ADMIT Internal Medicine; ATTEND Internal Medicine
DX: M32.9 Systemic lupus erythematosus, unspecified (principal); U07.1 COVID-19; N17.9 Acute kidney failure, unspecified; J90 Pleural effusion, not elsewhere classified; Z86.16 Personal history of COVID-19; N18.9 Chronic kidney disease, unspecified; K21.9 Gastro-esophageal reflux disease without esophagitis; I12.9 Hypertensive chronic kidney disease with stage 1 through stage 4 chronic kidney disease, or unspecified chronic kidney disease; F41.9 Anxiety disorder, unspecified; F32.9 Major depressive disorder, single episode, unspecified; K59.00 Constipation, unspecified; Z79.52 Long term (current) use of systemic steroids; Z79.899 Other long term (current) drug therapy; E11.9 Type 2 diabetes mellitus without complications; F17.210 Nicotine dependence, cigarettes, uncomplicated; Z88.2 Allergy status to sulfonamides; R77.8 Other specified abnormalities of plasma proteins; D64.9 Anemia, unspecified
CPT/HCPCS: 36415; 80048; 80053; 81001; 82607; 82746; 83735; 83880; 84484; 85025; 85652; 85730; 86140; 86160; 86225; 87086; 93306; A9270-GY; J1644; J1940; J3490; J7620-GY; Q0243